=== PATIENT | male | born 1985 | race Caucasian/White ===

== ENCOUNTER 2017-03-09 23:52 | Inpatient (IN) ==
[2017-03-10 00:43] LABS: Basophils # 0.1 K/mcL (0.0-0.2); Basophils % 0.8 %; Eosinophils # 0.2 K/mcL (0.0-0.6); Eosinophils % 1.8 %; Hematocrit 39.3 % (37.5-50.1); Hemoglobin 13.5 g/dL (12.9-16.9); Immature Granulocytes % 0.3 % (0-4); Lymphocytes % 31.3 %; Mean Corpuscular HGB Conc 34.4 g/dL (31.6-35.5); Mean Corpuscular Hemoglobin 28.4 pg (28.0-33.3); Mean Corpuscular Volume 82.7 fL (83.0-100.0); Mean Platelet Volume 10.4 fL (9.4-12.4); Monocytes # 0.5 K/mcL (0.0-1.3); Monocytes % 5.6 %; Neutrophils # 5.8 K/mcL (1.6-8.9); Platelet Count 226 K/mcL (140-400); Red Blood Count 4.75 M/mcL (4.19-5.50); Red Cell Distribution Width 12.8 % (11.5-14.5); Segmented Neutrophils % 60.2 %
[2017-03-10 00:57] LABS: BUN/Creatinine Ratio 11 (6-26); Blood Urea Nitrogen 10 mg/dL (8-26); Calcium 9.7 mg/dL (8.6-10.8); Carbon Dioxide 25 mEq/L (19-29); Chloride 105 mEq/L (98-109); Glucose 96 mg/dL (70-99); Osmolality,Calculated 289 (280-300); Potassium 3.4 mEq/L (3.5-4.5); Sodium 140 mEq/L (136-145); eGFR For African Americans > 60 (> 60); eGFR For Non-African Americans > 60 (> 60)
[2017-03-10 01:02] LABS: Bilirubin,Urine Small (Negative); Blood,Urine Negative (Negative); Clarity,Urine Clear (Clear); Color,Urine Yellow (Yellow); Glucose,Urine (UA) Normal (Normal); Ketones,Urine Trace mg/dL (Negative); Leukocyte Esterase,Urine Negative (Negative); Nitrite,Urine Negative (Negative); Protein,Urine Trace mg/dL (Neg-Trace); Specific Gravity,Urine > 1.030 (1.010-1.025); Urobilinogen,Urine Normal (Normal)
[2017-03-10 01:04] LABS: Bacteria,Urine None Seen per hpf (None-Few); Hyaline Casts,Urine None Seen per lpf (None-Few); RBC,Urine 0-3 per hpf (0-3); Squamous Epithelial Cell,Urine Few per lpf (None-Few); WBC,Urine 0-3 per hpf (0-3)
[2017-03-10 01:08] LABS: Amphetamine Screen,Urine Positive ng/mL (Cutoff=1000); Barbiturate Screen,Urine Negative ng/mL (Cutoff=200); Benzodiazepines Screen,Urine Negative ng/mL (Cutoff=200); Cannabinoid Screen,Urine Positive ng/mL (Cutoff = 50); Cocaine Screen,Urine Positive ng/mL (Cutoff= 300); Opiate Screen,Urine Negative ng/mL (Cutoff=300); Phencyclidine Screen,Urine Negative ng/mL (Cutoff=25)
[2017-03-10 01:17] LABS: Thyroid Stimulating Hormone 1.945 mcIU/mL (0.350-4.840)
[2017-03-10 01:38] LABS: Acetaminophen < 1.0 mcg/mL (10-30); Ethanol < 10 mg/dL (0-10); Salicylate < 5.0 mg/dL (15-30)
--- NOTE | 2017-03-10 01:50 | Emergency Department Note ---
Disposition Clinical Impression: Suicidal ideation Disposition: Still a Patient Condition: Fair Referrals: NONE,PCP [Primary Care Provider] - Forms: ED Satisfaction Letter Psych HPI - General Chief Complaint: ED Psychiatric Symptoms Stated Complaint: suicidal thoughts Time Seen by Provider: 03/10/17 00:12 Source: patient, EMS Mode of arrival: EMS Limitations: no limitations Nursing Notes Reviewed: Yes Vital Signs Reviewed: Yes - History of Present Illness Pt complaint: suicidal ideation, feels depressed Onset (ago): month(s) Duration: intermittent, getting worse History of similar episodes: Yes Improves with: none Worsens with: none Context: recent drug abuse, not taking psychiatric medications, significant life stressor Alleged intoxication: No Associated Psychiatric Symptoms: depression, suicidal ideation Associated symptoms: Reports: denies other symptoms Traumatic symptoms: denies traumatic injury Treatments prior to arrival: none Self harm or harm to others: admits thoughts of self harm, has plan - Related Data Previous Rx's Medication Instructions Recorded Naproxen [Naprosyn] 500 mg PO BID #14 tablet 08/01/16 Allergies Allergy/AdvReac Type Severity Reaction Status Date / Time No Known Allergies Allergy Verified 10/07/16 19:33 All systems ED: reviewed and negative except as stated. Review of Systems: As Per HPI Constitutional: Denies: fever, chills, weakness Eyes: Denies: vision change ENT ED: Denies: ear pain, throat pain, congestion, dysphagia Cardiovascular: Denies: chest pain, palpitations, dyspnea on exertion Respiratory: Denies: cough, dyspnea, wheezes Gastrointestinal: Denies: abdominal pain, nausea, vomiting, diarrhea Genitourinary: Denies: hematuria Musculoskeletal: Denies: back pain, neck pain, joint swelling, arthralgia Integumentary: Denies: rash Neurological: Denies: headache, weakness, numbness, paresthesias Psychiatric: Reports: as per HPI, anxiety, depression, suicidal thoughts. Denies: homicidal thoughts, auditory hallucinations, visual hallucinations Endocrine: Denies: fatigue Hematological/Lymphatic: Denies: easy bleeding, easy bruising, lymphadenopathy Past Medical History - Past Medical History Attestation: Yes The following information was validated with the patient. Source: patient Medical history: Reports: no medical history Psychiatric history: Reports: depression - Social History Smoking Status: Former smoker Smokeless Tobacco Status: Yes Alcohol use: Reports: none Drug use: Reports: cocaine, marijuana, methamphetamine Physical Exam - General Limitations: no limitations General appearance: alert, in no apparent distress, anxious - Head Head exam: atraumatic, normocephalic, normal inspection - Eye Eye exam: Present: normal appearance, PERRL. Absent: scleral icterus, conjunctival injection, periorbital swelling - ENT ENT exam: mucous membranes moist - Neck Neck exam: Present: normal inspection, full ROM, trachea midline. Absent: meningismus - Chest Chest inspection: Present: normal inspection - Respiratory Respiratory exam: Present: normal lung sounds bilaterally. Absent: respiratory distress - Cardiovascular Cardiovascular exam: Present: regular rate, normal rhythm, normal heart sounds - Extremities Exam Extremities exam: Present: normal inspection, full ROM, normal capillary refill. Absent: pedal edema - Back Exam Back exam: Present: normal inspection - Neurological Exam Neurological exam: Present: alert, oriented X3, CN II-XII intact, normal gait - Psychiatric Psychiatric exam: Present: normal affect, depressed - Skin Skin exam: Present: warm, dry, intact, normal color Course Course Narrative: Patient was brought in by squad for evaluation of suicidal ideation. He states he was standing on the [address] [facility] contemplating jumping. I realized that it was not Tylenol. He has had depression for many years but stopped taking medication at the age of 19. He has had recent increased stress. He denies homicidal ideation. He denies any pain at this time. Labs are unremarkable except for urine tox screen positive for cocaine, methamphetamine and marijuana. Patient has been seen by the 1A nurse, Vinay FERMIN. She consulted with the psychiatrist. They are trying to place the patient. Patient care is transferred to the oncoming provider at shift change. Vital Signs Temperature 97.8 F 03/09/17 23:55 Pulse Rate 78 03/09/17 23:55 Respiratory Rate 16 03/09/17 23:55 Blood Pressure 118/83 03/09/17 23:55 O2 Sat by Pulse Oximetry 97 03/09/17 23:55 Temperature 97.8 F 03/09/17 23:55 Pulse Rate 72 03/10/17 03:48 Respiratory Rate 16 03/10/17 03:48 Blood Pressure 116/78 03/10/17 03:48 O2 Sat by Pulse Oximetry 98 03/10/17 03:48 Oxygen Delivery Oxygen Delivery Room Air Psych - Lab Data Result diagrams: 03/10/17 00:34 03/10/17 00:34 Lab Results 03/10/17 03/10/17 03/10/17 Range/Units 00:34 00:34 00:43 WBC 9.7 (4.3-11.1) K/mcL RBC 4.75 (4.19-5.50) M/mcL Hgb 13.5 (12.9-16.9) g/dL Hct 39.3 (37.5-50.1) % MCV 82.7 L (83.0-100.0) fL MCH 28.4 (28.0-33.3) pg MCHC 34.4 (31.6-35.5) g/dL RDW 12.8 (11.5-14.5) % Plt Count 226 (140-400) K/mcL MPV 10.4 (9.4-12.4) fL Immature Gran % 0.3 (0-4) % Seg Neutrophils % 60.2 % Lymphocytes % 31.3 % Monocytes % 5.6 % Eosinophils % 1.8 % Basophils % 0.8 % Neutrophils # 5.8 (1.6-8.9) K/mcL Lymphocytes # 3.0 (0.6-4.6) K/mcL Monocytes # 0.5 (0.0-1.3) K/mcL Eosinophils # 0.2 (0.0-0.6) K/mcL Basophils # 0.1 (0.0-0.2) K/mcL Sodium 140 (136-145) mEq/L Potassium 3.4 L (3.5-4.5) mEq/L Chloride 105 (98-109) mEq/L Carbon Dioxide 25 (19-29) mEq/L BUN 10 (8-26) mg/dL Creatinine 0.93 (0.72-1.25) mg/dL Est GFR ( Amer) > 60 (> 60) Est GFR (Non-Af Amer) > 60 (> 60) BUN/Creatinine Ratio 11 (6-26) Glucose 96 (70-99) mg/dL Calculated Osmolality 289 (280-300) Calcium 9.7 (8.6-10.8) mg/dL TSH 1.945 (0.350-4.840) mcIU/mL Urine Color Yellow (Yellow) Urine Clarity Clear (Clear) Urine pH 6.0 (5.0-8.0) pH Units Ur Specific [place] > 1.030 H (1.010-1.025) Urine Protein Trace (Neg-Trace) mg/dL Urine Glucose (UA) Normal (Normal) mg/dL Urine Ketones Trace H (Negative) mg/dL Urine Blood Negative (Negative) Urine Nitrite Negative (Negative) Urine Bilirubin Small H (Negative) Urine Urobilinogen Normal (Normal) mg/dL Ur Leukocyte Esterase Negative (Negative) Urine Microscopic RBC 0-3 (0-3) per hpf Urine Microscopic WBC 0-3 (0-3) per hpf Ur Squamous Epith Cells Few (None-Few) per lpf Urine Bacteria None Seen (None-Few) per hpf Hyaline Casts None Seen (None-Few) per lpf Salicylates < 5.0 L (15-30) mg/dL Urine Opiates Screen (Japmqe=567) ng/mL Acetaminophen < 1.0 L (10-30) mcg/mL Ur Barbiturates Screen (Uzmcmx=847) ng/mL Ur Phencyclidine Scrn (Cutoff=25) ng/mL Ur Amphetamines Screen (Meuyps=6961) ng/mL U Benzodiazepines Scrn (Djyhtk=800) ng/mL Urine Cocaine Screen (Cutoff= 300) ng/mL U Marijuana (THC) Screen (Cutoff = 50) ng/mL Ethyl Alcohol < 10 (0-10) mg/dL 03/10/17 Range/Units 00:49 WBC (4.3-11.1) K/mcL RBC (4.19-5.50) M/mcL Hgb (12.9-16.9) g/dL Hct (37.5-50.1) % MCV (83.0-100.0) fL MCH (28.0-33.3) pg MCHC (31.6-35.5) g/dL RDW (11.5-14.5) % Plt Count (140-400) K/mcL MPV (9.4-12.4) fL Immature Gran % (0-4) % Seg Neutrophils % % Lymphocytes % % Monocytes % % Eosinophils % % Basophils % % Neutrophils # (1.6-8.9) K/mcL Lymphocytes # (0.6-4.6) K/mcL Monocytes # (0.0-1.3) K/mcL Eosinophils # (0.0-0.6) K/mcL Basophils # (0.0-0.2) K/mcL Sodium (136-145) mEq/L Potassium (3.5-4.5) mEq/L Chloride (98-109) mEq/L Carbon Dioxide (19-29) mEq/L BUN (8-26) mg/dL Creatinine (0.72-1.25) mg/dL Est GFR ( Amer) (> 60) Est GFR (Non-Af Amer) (> 60) BUN/Creatinine Ratio (6-26) Glucose (70-99) mg/dL Calculated Osmolality (280-300) Calcium (8.6-10.8) mg/dL TSH (0.350-4.840) mcIU/mL Urine Color (Yellow) Urine Clarity (Clear) Urine pH (5.0-8.0) pH Units Ur Specific [place] (1.010-1.025) Urine Protein (Neg-Trace) mg/dL Urine Glucose (UA) (Normal) mg/dL Urine Ketones (Negative) mg/dL Urine Blood (Negative) Urine Nitrite (Negative) Urine Bilirubin (Negative) Urine Urobilinogen (Normal) mg/dL Ur Leukocyte Esterase (Negative) Urine Microscopic RBC (0-3) per hpf Urine Microscopic WBC (0-3) per hpf Ur Squamous Epith Cells (None-Few) per lpf Urine Bacteria (None-Few) per hpf Hyaline Casts (None-Few) per lpf Salicylates (15-30) mg/dL Urine Opiates Screen Negative ([place]=376) ng/mL Acetaminophen (10-30) mcg/mL Ur Barbiturates Screen Negative (Eoznpo=556) ng/mL Ur Phencyclidine Scrn Negative (Cutoff=25) ng/mL Ur Amphetamines Screen Positive H (Bngddj=8132) ng/mL U Benzodiazepines Scrn Negative (Lammqr=473) ng/mL Urine Cocaine Screen Positive H (Cutoff= 300) ng/mL U Marijuana (THC) Screen Positive H (Cutoff = 50) ng/mL Ethyl Alcohol (0-10) mg/dL Psychiatric Medical Clearance - Medical Clearance Checklist Medical History: No Social History Section defined Current Vitals: Last Vital Signs Temp 97.8 F 03/09/17 23:55 Pulse 72 03/10/17 03:48 Resp 16 03/10/17 03:48 BP 116/78 03/10/17 03:48 Pulse Ox 98 03/10/17 03:48 Psychiatric Lab Panel: Drug Levels and Toxicity 03/10/17 03/10/17 00:34 00:49 Urine Opiates Screen Negative Acetaminophen < 1.0 L Ur Barbiturates Screen Negative Ur Phencyclidine Scrn Negative Ur Amphetamines Screen Positive H U Benzodiazepines Scrn Negative Urine Cocaine Screen Positive H U Marijuana (THC) Screen Positive H Ethyl Alcohol < 10 Abnormal Labs: Abnormal lab results MCV 82.7 fL (83.0-100.0) L 03/10/17 00:34 Potassium 3.4 mEq/L (3.5-4.5) L 03/10/17 00:34 Ur Specific [place] > 1.030 (1.010-1.025) H 03/10/17 00:43 Urine Ketones Trace mg/dL (Negative) H 03/10/17 00:43 Urine Bilirubin Small (Negative) H 03/10/17 00:43 Salicylates < 5.0 mg/dL (15-30) L 03/10/17 00:34 Acetaminophen < 1.0 mcg/mL (10-30) L 03/10/17 00:34 Ur Amphetamines Screen Positive ng/mL (Swcwem=2274) H 03/10/17 00:49 Urine Cocaine Screen Positive ng/mL (Cutoff= 300) H 03/10/17 00:49 U Marijuana (THC) Screen Positive ng/mL (Cutoff = 50) H 03/10/17 00:49 Statement of Medical Clearance: I have evaluated the patient, reviewed diagnostic information, and certify that the patient's medical condition is sufficiently stable that transfer to the psychiatric unit does not pose a significant risk of deterioration. S.B.A.R. - S.B.A.Sunny. Situation: Demographics, MOA Background: Presenting Complaint, Relevant PMH, Meds, & Allergies Assessment: Vital Signs, Course and respsone to treatment, Patient/Family Expectation Recommendation: Barrier(s) to disposition, Recommendation based on pending studies, treatments, or consults S.B.A.R. Report Given to: Cuauhtemoc Vargas CNP SBecka Repor Time: 06:22
--- NOTE | 2017-03-10 06:44 | Emergency Department Note ---
Disposition Clinical Impression: Suicidal ideation Disposition: Admitted As Inpatient Condition: Fair Referrals: NONE,PCP [Primary Care Provider] - Forms: ED Satisfaction Letter Time of Disposition: 10:01 Psych HPI - General Chief Complaint: ED Psychiatric Symptoms Stated Complaint: suicidal thoughts Time Seen by Provider: 03/10/17 00:12 Source: patient, EMS Mode of arrival: EMS - History of Present Illness Duration: intermittent, getting worse Improves with: none Worsens with: none Associated symptoms: Reports: denies other symptoms Treatments prior to arrival: none - Related Data Previous Rx's Medication Instructions Recorded Naproxen [Naprosyn] 500 mg PO BID #14 tablet 08/01/16 Allergies Allergy/AdvReac Type Severity Reaction Status Date / Time No Known Allergies Allergy Verified 10/07/16 19:33 Constitutional: Denies: fever, chills, weakness Eyes: Denies: vision change ENT ED: Denies: ear pain, throat pain, congestion, dysphagia Cardiovascular: Denies: chest pain, palpitations, dyspnea on exertion Respiratory: Denies: cough, dyspnea, wheezes Gastrointestinal: Denies: abdominal pain, nausea, vomiting, diarrhea Genitourinary: Denies: hematuria Musculoskeletal: Denies: back pain, neck pain, joint swelling, arthralgia Integumentary: Denies: rash Neurological: Denies: headache, weakness, numbness, paresthesias Psychiatric: Reports: as per HPI, anxiety, depression, suicidal thoughts. Denies: homicidal thoughts, auditory hallucinations, visual hallucinations Endocrine: Denies: fatigue Hematological/Lymphatic: Denies: easy bleeding, easy bruising, lymphadenopathy Past Medical History - Past Medical History Medical history: Reports: no medical history Psychiatric history: Reports: depression - Social History Smoking Status: Former smoker Smokeless Tobacco Status: Yes Alcohol use: Reports: none Drug use: Reports: cocaine, marijuana, methamphetamine Physical Exam - General Limitations: no limitations General appearance: alert, in no apparent distress, anxious Course Course Narrative: 0600: I have assumed care of this patient from Lakia Lundberg PA-C due to mid- level shift change. Please refer to Lakia's documentation for any care performed prior to my arrival. Briefly, the patient is alert and oriented 31- year-old male who presented by EMS for thoughts of suicidal ideation. The patient states that he was standing on the [address] [facility] and contemplating jumping however decided it was not time. He states that he has battled depression for many years. He had been medicated up until the age of 19, however has been noncompliant with medications since. The patient is resting comfortably in bed at this time. He has been evaluated by 1A. at this time, we are awaiting placement at either an outside facility or for a bed to open up in 1A. 1000: I have been notified by the patient's nurse that the patient will be admitted to our inpatient psychiatric unit, 1A. Vital Signs Temperature 97.8 F 03/09/17 23:55 Pulse Rate 78 03/09/17 23:55 Respiratory Rate 16 03/09/17 23:55 Blood Pressure 118/83 03/09/17 23:55 O2 Sat by Pulse Oximetry 97 03/09/17 23:55 Temperature 97.8 F 03/09/17 23:55 Pulse Rate 64 03/10/17 08:27 Respiratory Rate 14 03/10/17 08:27 Blood Pressure 113/68 03/10/17 08:27 O2 Sat by Pulse Oximetry 98 03/10/17 08:27 Oxygen Delivery Oxygen Delivery Room Air Psych - Lab Data Lab results reviewed: Yes I reviewed the patient's lab results. Result diagrams: 03/10/17 00:34 03/10/17 00:34 Lab Results 03/10/17 03/10/17 03/10/17 Range/Units 00:34 00:34 00:43 WBC 9.7 (4.3-11.1) K/mcL RBC 4.75 (4.19-5.50) M/mcL Hgb 13.5 (12.9-16.9) g/dL Hct 39.3 (37.5-50.1) % MCV 82.7 L (83.0-100.0) fL MCH 28.4 (28.0-33.3) pg MCHC 34.4 (31.6-35.5) g/dL RDW 12.8 (11.5-14.5) % Plt Count 226 (140-400) K/mcL MPV 10.4 (9.4-12.4) fL Immature Gran % 0.3 (0-4) % Seg Neutrophils % 60.2 % Lymphocytes % 31.3 % Monocytes % 5.6 % Eosinophils % 1.8 % Basophils % 0.8 % Neutrophils # 5.8 (1.6-8.9) K/mcL Lymphocytes # 3.0 (0.6-4.6) K/mcL Monocytes # 0.5 (0.0-1.3) K/mcL Eosinophils # 0.2 (0.0-0.6) K/mcL Basophils # 0.1 (0.0-0.2) K/mcL Sodium 140 (136-145) mEq/L Potassium 3.4 L (3.5-4.5) mEq/L Chloride 105 (98-109) mEq/L Carbon Dioxide 25 (19-29) mEq/L BUN 10 (8-26) mg/dL Creatinine 0.93 (0.72-1.25) mg/dL Est GFR ( Amer) > 60 (> 60) Est GFR (Non-Af Amer) > 60 (> 60) BUN/Creatinine Ratio 11 (6-26) Glucose 96 (70-99) mg/dL Calculated Osmolality 289 (280-300) Calcium 9.7 (8.6-10.8) mg/dL TSH 1.945 (0.350-4.840) mcIU/mL Urine Color Yellow (Yellow) Urine Clarity Clear (Clear) Urine pH 6.0 (5.0-8.0) pH Units Ur Specific [place] > 1.030 H (1.010-1.025) Urine Protein Trace (Neg-Trace) mg/dL Urine Glucose (UA) Normal (Normal) mg/dL Urine Ketones Trace H (Negative) mg/dL Urine Blood Negative (Negative) Urine Nitrite Negative (Negative) Urine Bilirubin Small H (Negative) Urine Urobilinogen Normal (Normal) mg/dL Ur Leukocyte Esterase Negative (Negative) Urine Microscopic RBC 0-3 (0-3) per hpf Urine Microscopic WBC 0-3 (0-3) per hpf Ur Squamous Epith Cells Few (None-Few) per lpf Urine Bacteria None Seen (None-Few) per hpf Hyaline Casts None Seen (None-Few) per lpf Salicylates < 5.0 L (15-30) mg/dL Urine Opiates Screen (Ejjrav=703) ng/mL Acetaminophen < 1.0 L (10-30) mcg/mL Ur Barbiturates Screen (Gkzaqi=931) ng/mL Ur Phencyclidine Scrn (Cutoff=25) ng/mL Ur Amphetamines Screen (Axpyiv=4470) ng/mL U Benzodiazepines Scrn (Cnjmtd=457) ng/mL Urine Cocaine Screen (Cutoff= 300) ng/mL U Marijuana (THC) Screen (Cutoff = 50) ng/mL Ethyl Alcohol < 10 (0-10) mg/dL 03/10/17 Range/Units 00:49 WBC (4.3-11.1) K/mcL RBC (4.19-5.50) M/mcL Hgb (12.9-16.9) g/dL Hct (37.5-50.1) % MCV (83.0-100.0) fL MCH (28.0-33.3) pg MCHC (31.6-35.5) g/dL RDW (11.5-14.5) % Plt Count (140-400) K/mcL MPV (9.4-12.4) fL Immature Gran % (0-4) % Seg Neutrophils % % Lymphocytes % % Monocytes % % Eosinophils % % Basophils % % Neutrophils # (1.6-8.9) K/mcL Lymphocytes # (0.6-4.6) K/mcL Monocytes # (0.0-1.3) K/mcL Eosinophils # (0.0-0.6) K/mcL Basophils # (0.0-0.2) K/mcL Sodium (136-145) mEq/L Potassium (3.5-4.5) mEq/L Chloride (98-109) mEq/L Carbon Dioxide (19-29) mEq/L BUN (8-26) mg/dL Creatinine (0.72-1.25) mg/dL Est GFR ( Amer) (> 60) Est GFR (Non-Af Amer) (> 60) BUN/Creatinine Ratio (6-26) Glucose (70-99) mg/dL Calculated Osmolality (280-300) Calcium (8.6-10.8) mg/dL TSH (0.350-4.840) mcIU/mL Urine Color (Yellow) Urine Clarity (Clear) Urine pH (5.0-8.0) pH Units Ur Specific [place] (1.010-1.025) Urine Protein (Neg-Trace) mg/dL Urine Glucose (UA) (Normal) mg/dL Urine Ketones (Negative) mg/dL Urine Blood (Negative) Urine Nitrite (Negative) Urine Bilirubin (Negative) Urine Urobilinogen (Normal) mg/dL Ur Leukocyte Esterase (Negative) Urine Microscopic RBC (0-3) per hpf Urine Microscopic WBC (0-3) per hpf Ur Squamous Epith Cells (None-Few) per lpf Urine Bacteria (None-Few) per hpf Hyaline Casts (None-Few) per lpf Salicylates (15-30) mg/dL Urine Opiates Screen Negative (Rgcaad=730) ng/mL Acetaminophen (10-30) mcg/mL Ur Barbiturates Screen Negative (Frgdsu=148) ng/mL Ur Phencyclidine Scrn Negative (Cutoff=25) ng/mL Ur Amphetamines Screen Positive H (Sqxbrw=1162) ng/mL U Benzodiazepines Scrn Negative (Spigbb=976) ng/mL Urine Cocaine Screen Positive H (Cutoff= 300) ng/mL U Marijuana (THC) Screen Positive H (Cutoff = 50) ng/mL Ethyl Alcohol (0-10) mg/dL Psychiatric Medical Clearance - Medical Clearance Checklist Medical History: No Social History Section defined Current Vitals: Last Vital Signs Temp 97.8 F 03/09/17 23:55 Pulse 64 03/10/17 08:27 Resp 14 03/10/17 08:27 BP 113/68 03/10/17 08:27 Pulse Ox 98 03/10/17 08:27 Psychiatric Lab Panel: Drug Levels and Toxicity 03/10/17 03/10/17 00:34 00:49 Urine Opiates Screen Negative Acetaminophen < 1.0 L Ur Barbiturates Screen Negative Ur Phencyclidine Scrn Negative Ur Amphetamines Screen Positive H U Benzodiazepines Scrn Negative Urine Cocaine Screen Positive H U Marijuana (THC) Screen Positive H Ethyl Alcohol < 10 Abnormal Labs: Abnormal lab results MCV 82.7 fL (83.0-100.0) L 03/10/17 00:34 Potassium 3.4 mEq/L (3.5-4.5) L 03/10/17 00:34 Ur Specific [place] > 1.030 (1.010-1.025) H 03/10/17 00:43 Urine Ketones Trace mg/dL (Negative) H 03/10/17 00:43 Urine Bilirubin Small (Negative) H 03/10/17 00:43 Salicylates < 5.0 mg/dL (15-30) L 03/10/17 00:34 Acetaminophen < 1.0 mcg/mL (10-30) L 03/10/17 00:34 Ur Amphetamines Screen Positive ng/mL (Tbsvsd=9564) H 03/10/17 00:49 Urine Cocaine Screen Positive ng/mL (Cutoff= 300) H 03/10/17 00:49 U Marijuana (THC) Screen Positive ng/mL (Cutoff = 50) H 03/10/17 00:49 Statement of Medical Clearance: I have evaluated the patient, reviewed diagnostic information, and certify that the patient's medical condition is sufficiently stable that transfer to the psychiatric unit does not pose a significant risk of deterioration.
--- NOTE | 2017-03-10 13:07 | Psychiatry History & Physical ---
Date of Encounter: 03/10/17 Time of Encounter: 13:15 History of Present Illness Patient Stated Chief Complaint: "I wanted to go an kill myself." Medicare Admission Attestation: For traditional Medicare patients the provided hospital inpatient services are reasonable and necessary and in the case of services not specified as inpatient -only under 42 CFR 419.22 (n), that they are appropriately provided as inpatient services in accordance 42 CFR 412.3. For Critical Access Hospital the patient may reasonably be expected to be discharged or transferred to a hospital within 96 hours after admission to the Critical Access Hospital. Admitted From: Emergency Dept Plans for Post Hospital Care: Home History of Present Illness: Mr. Tavares is a 31 year old male with a reported history of depression, anxiety , opiate dependence, cocaine abuse who presented to the hospital with increasing depression and suicidal ideations. Patient states that he has a history of depression and has tried multiple times to kill himself. He usually does not think about a plan but just impulsively does something. Yesterday he wanted to jump off a bridge but was brought to the hospital instead. His last suicide attempt was over a year ago and was also an attempt to jump off a bridge. He states he has struggled long time with abusing pain pills and cocaine. He was on Suboxone until recently but he was kicked out of the program because of drug use. Patient reports that he sees demons and often prefers them to God because "God gives you free well but he cannot help you." "At least the demons will offer you stuff even if you have to train for something." He has been on multiple medications in the past and mentions Zoloft as well as Seroquel. He cannot remember all the medications he has tried. He is not sure what medications may help him but he does want to try medications for his mood. He does have sleep issues as well both falling asleep and staying asleep. His last use of illicit drugs was on Thursday. Past Med Surg Social Fam HX - Past Medical History Medical history: no medical history - Past Psychiatric History Psychiatric history: Reports: prior suicide attempt, previous psychiatric hospitalization Past psychiatric history details: Patient reports three or four previous suicide attempts. Last time was over a year ago and he attempted to jump off a bridge. He has been admitted to [facility] before. History opiate and cocaine abuse. Family psychiatric history: No Family History of Suicide: None - Social History Smoking Status: Current every day smoker Smokeless Tobacco Status: Yes Alcohol use: none Drug use: cocaine, marijuana, methamphetamine Occupational status: employed ([employer]) Current living situation: Homeless - Family History Mother Name: Natasha Oliveira Age: 48 Family Member Ethnicity: Non- Living Status: Still Living Hx Family Cardiac Disorders: Yes (Great uncle has signifant history of [place], HTN) Hx Family Respiratory Disorders: Yes (Grandfather is O2 dependent) Hx Family Cancer: No Hx Family GI Disorders: No Hx Family Genitourinary Disorders: Yes (Grandmother incontinent/urinary frequency.) Hx Family Endocrine Disorder: Yes (Significant history of multiple family members having diabetes.) Hx Family Musculoskeletal Disorders: No Hx Family Neuromuscular Disorders: No Hx Family Neurologic Disorders: No Hx Family HEENT Disorders: No Hx Family Autoimmune Disorders: No Hx Family Reproductive Disorders: No Hx Family Psychosocial Disorders: No Hx Family Medical Disorders: No Medications & Allergies No Known Home Drugs 03/10/17 [History] 3 Allergy/AdvReac Type Severity Reaction Status Date / Time No Known Allergies Allergy Verified 10/07/16 19:33 Review of Systems Musculoskeletal: Reports: joint pain (chronic) Psychiatric: Reports: depression, anxiety, abnormal sleep pattern, suicidal ideation, auditory hallucinations, visual hallucinations, memory loss, difficulty concentrating, hopelessness, irritability Mental Status Exam Patient orientation: Yes Person, Yes Time, Yes Place Level of alertness: Alert Patient appearance: Unkempt Behavior: restless, guarded Psychomotor activity: Slowed Eye contact: Minimal Contact Mood description: Depressed Affect description: flat Speech pattern: Slowed Speech volume: Normal Thought process: Intact, [place], Slowed Thinking Thought content: Yes Suicidal ideation Perceptual disturbances: No Auditory hallucinations, No Visual hallucinations Attention span: Capable of Focused Attention Memory description: Grossly Intact Patient reliability: Questionable Historian Intelligence estimate: Below Average Judgment: Poor Insight: None Exam - HEENT Head exam IM: Present: atraumatic Eye exam IM: Present: EOMI - Neurological Neurological exam IM: Present: CN II-XII intact - Extremities Extremities exam IM: Present: full ROM - Skin Skin exam IM: Present: dry, warm Results - Vital Signs Vital signs: Temp Pulse Resp BP Pulse Ox 97.8 F 82 16 113/68 98 03/09/17 23:55 03/10/17 10:00 03/10/17 10:00 03/10/17 10:00 03/10/17 10:00 - Labs Labs: Laboratory Last Values WBC 9.7 K/mcL (4.3-11.1) 03/10/17 00:34 RBC 4.75 M/mcL (4.19-5.50) 03/10/17 00:34 Hgb 13.5 g/dL (12.9-16.9) 03/10/17 00:34 Hct 39.3 % (37.5-50.1) 03/10/17 00:34 MCV 82.7 fL (83.0-100.0) L 03/10/17 00:34 MCH 28.4 pg (28.0-33.3) 03/10/17 00:34 MCHC 34.4 g/dL (31.6-35.5) 03/10/17 00:34 RDW 12.8 % (11.5-14.5) 03/10/17 00:34 Plt Count 226 K/mcL (140-400) 03/10/17 00:34 MPV 10.4 fL (9.4-12.4) 03/10/17 00:34 Immature Gran % 0.3 % (0-4) 03/10/17 00:34 Seg Neutrophils % 60.2 % 03/10/17 00:34 Lymphocytes % 31.3 % 03/10/17 00:34 Monocytes % 5.6 % 03/10/17 00:34 Eosinophils % 1.8 % 03/10/17 00:34 Basophils % 0.8 % 03/10/17 00:34 Neutrophils # 5.8 K/mcL (1.6-8.9) 03/10/17 00:34 Lymphocytes # 3.0 K/mcL (0.6-4.6) 03/10/17 00:34 Monocytes # 0.5 K/mcL (0.0-1.3) 03/10/17 00:34 Eosinophils # 0.2 K/mcL (0.0-0.6) 03/10/17 00:34 Basophils # 0.1 K/mcL (0.0-0.2) 03/10/17 00:34 Sodium 140 mEq/L (136-145) 03/10/17 00:34 Potassium 3.4 mEq/L (3.5-4.5) L 03/10/17 00:34 Chloride 105 mEq/L (98-109) 03/10/17 00:34 Carbon Dioxide 25 mEq/L (19-29) 03/10/17 00:34 BUN 10 mg/dL (8-26) 03/10/17 00:34 Creatinine 0.93 mg/dL (0.72-1.25) 03/10/17 00:34 Est GFR ( Amer) > 60 (> 60) 03/10/17 00:34 Est GFR (Non-Af Amer) > 60 (> 60) 03/10/17 00:34 BUN/Creatinine Ratio 11 (6-26) 03/10/17:34 Glucose 96 mg/dL (70-99) 03/10/17:34 Calculated Osmolality 289 (280-300) 03/10/17:34 Calcium 9.7 mg/dL (8.6-10.8) 03/10/17 00:34 TSH 1.945 mcIU/mL (0.350-4.840) 03/10/17 00:34 Urine Color Yellow (Yellow) 03/10/17 00:43 Urine Clarity Clear (Clear) 03/10/17 00:43 Urine pH 6.0 pH Units (5.0-8.0) 03/10/17 00:43 Ur Specific [place] > 1.030 (1.010-1.025) H 03/10/17 00:43 Urine Protein Trace mg/dL (Neg-Trace) 03/10/17 00:43 Urine Glucose (UA) Normal mg/dL (Normal) 03/10/17 00:43 Urine Ketones Trace mg/dL (Negative) H 03/10/17 00:43 Urine Blood Negative (Negative) 03/10/17 00:43 Urine Nitrite Negative (Negative) 03/10/17 00:43 Urine Bilirubin Small (Negative) H 03/10/17 00:43 Urine Urobilinogen Normal mg/dL (Normal) 03/10/17 00:43 Ur Leukocyte Esterase Negative (Negative) 03/10/17 00:43 Urine Microscopic RBC 0-3 per hpf (0-3) 03/10/17 00:43 Urine Microscopic WBC 0-3 per hpf (0-3) 03/10/17 00:43 Ur Squamous Epith Cells Few per lpf (None-Few) 03/10/17 00:43 Urine Bacteria None Seen per hpf (None-Few) 03/10/17 00:43 Hyaline Casts None Seen per lpf (None-Few) 03/10/17 00:43 Salicylates < 5.0 mg/dL (15-30) L 03/10/17 00:34 Urine Opiates Screen Negative ng/mL (Ropjye=759) 03/10/17 00:49 Acetaminophen < 1.0 mcg/mL (10-30) L 03/10/17 00:34 Ur Barbiturates Screen Negative ng/mL (Tklbwp=777) 03/10/17 00:49 Ur Phencyclidine Scrn Negative ng/mL (Cutoff=25) 03/10/17 00:49 Ur Amphetamines Screen Positive ng/mL (Nrjbhn=2526) H 03/10/17 00:49 U Benzodiazepines Scrn Negative ng/mL (Ufthuj=748) 03/10/17 00:49 Urine Cocaine Screen Positive ng/mL (Cutoff= 300) H 03/10/17 00:49 U Marijuana (THC) Screen Positive ng/mL (Cutoff = 50) H 03/10/17 00:49 Ethyl Alcohol < 10 mg/dL (0-10) 03/10/17 00:34 Assessment and Plan (1) Depression Current visit: Yes Status: Acute Plan: Admit inpatient for safety and stabilization, Close observation, Suicide Precautions per unit protocol, Encourage participation in unit milieu, Group Therapy, Monitor sleep, Monitor appetite Additional Plan: We will start Lexapro. Consider adding Risperdal at bedtime. Trazodone for sleep. Monitor symptoms. Risks, benefits, side effects, alternatives discussed w/pt: Yes Patient agreeable to treatment: Yes Estimated Length of Stay (Days): 3 Qualifiers: Depression Type: major depressive disorder Major depression recurrence: recurrent Active/Remission status: currently active Major depression episode severity: severe Psychotic features: with psychotic features Qualified Code(s): F33.3 - Major depressive disorder, recurrent, severe with psychotic symptoms (2) Anxiety Current visit: Yes Status: Acute Plan: Admit inpatient for safety and stabilization, Close observation, Suicide Precautions per unit protocol, Encourage participation in unit milieu, Group Therapy, Monitor sleep, Monitor appetite Additional Plan: Hydroxyzine for anxiety. (3) Opiate dependence Current visit: Yes Status: Acute Plan: Admit inpatient for safety and stabilization, Close observation, Suicide Precautions per unit protocol, Encourage participation in unit milieu, Group Therapy, Monitor sleep, Monitor appetite Additional Plan: Monitor for withdrawal. Qualifiers: Substance use status: uncomplicated Qualified Code(s): F11.20 - Opioid dependence, uncomplicated (4) Cocaine abuse Current visit: Yes Status: Acute
[2017-03-10] MEDS ORDERED: hydrOXYzine pamoate 25 MG CAPSULE PO PRN (13:56)
[2017-03-10] MEDS ORDERED: Mag Hydrox/Al Hydrox/Simeth 30 ML UDC PO PRN (13:56)
[2017-03-10] MEDS ORDERED: *HR* LORazepam 1 MG TABLET PO PRN (13:56)
[2017-03-10] MEDS ORDERED: traZODone 50 MG TABLET PO PRN (13:56)
[2017-03-10] MEDS ORDERED: *HR* LORazepam 2 MG/ML VIAL IM PRN (13:56)
[2017-03-10] MEDS ORDERED: Haloperidol Lactate 5 MG/ML VIAL IM PRN (13:56)
[2017-03-10] MEDS ORDERED: Acetaminophen 325 MG TABLET PO PRN (13:56)
[2017-03-10] MEDS ORDERED: MOM Conc 10 ML UD.LIQ PO PRN (13:56)
[2017-03-10] MEDS: Nicotine 21 MG PATCH.TD24 TD SCH (14:30)
[2017-03-11] MEDS: Nicotine 21 MG PATCH.TD24 TD SCH (09:00)
--- NOTE | 2017-03-11 11:04 | Psychiatry Progress Note ---
Date of Encounter: 03/11/17 Time of Encounter: 09:00 Subjective Interval history: Roman is seen today for follow-up. He reports that he did not sleep well. He feels he is having some Suboxone withdrawal. He has not tried Vistaril for restlessness or anxiety. He states he woke up several times throughout the night and felt very anxious and depressed. He reports continued thoughts about demons. He does not appear to have showered. Patient is willing to try other methods to help with mood and anxiety symptoms. Review of Systems Constitutional: Denies: fever, chills, weakness, weight change Eyes: Denies: eye pain, vision change Ears, Nose, Throat: Denies: ear pain, throat pain, dental pain, hearing loss, congestion Cardiovascular: Denies: chest pain, palpitations, dyspnea on exertion Respiratory: Denies: cough, dyspnea, wheezes Gastrointestinal: Denies: abdominal pain, nausea, vomiting, diarrhea, constipation Musculoskeletal: Denies: joint swelling, joint pain Neurological: Reports: headache Psychiatric: Reports: depression, anxiety, abnormal sleep pattern, suicidal ideation, auditory hallucinations, visual hallucinations, memory loss, difficulty concentrating, hopelessness, irritability Objective: Exam Patient orientation: Yes Person, Yes Place, Yes Circumstance Level of alertness: Alert Patient appearance: Disheveled, Malodorous Behavior: nervous, guarded, distractible Psychomotor activity: Slowed Eye contact: Intense Contact Mood description: Depressed, Anxious Affect description: flat Speech pattern: Slowed Speech volume: Soft/Quiet Thought process: [place], Slowed Thinking Thought content: Yes Suicidal ideation Perceptual disturbances: No Auditory hallucinations, No Visual hallucinations Judgment: Poor Insight: Minimal Results - Vital Signs Vital Signs: Temp Pulse Resp BP Pulse Ox 97.8 F 85 18 122/63 98 03/11/17 09:00 03/11/17 09:00 03/11/17 09:00 03/11/17 09:00 03/10/17 10:00 Assessment and Plan (1) Depression Current visit: Yes Status: Acute Plan: Continue hospitalization, Close observation, Suicide Precautions per unit protocol, Encourage participation in unit milieu, Group Therapy, Monitor sleep, Monitor appetite Additional Plan: Add Risperdal at bedtime. Continue Lexapro. Encourage appropriate ADLs and group attendance. Risks, benefits, side effects, alternatives discussed w/pt: Yes Patient agreeable to treatment: Yes Qualifiers: Depression Type: major depressive disorder Major depression recurrence: recurrent Active/Remission status: currently active Major depression episode severity: severe Psychotic features: with psychotic features Qualified Code(s): F33.3 - Major depressive disorder, recurrent, severe with psychotic symptoms (2) Anxiety Current visit: Yes Status: Acute Plan: Continue hospitalization, Close observation, Suicide Precautions per unit protocol, Encourage participation in unit milieu, Group Therapy, Monitor sleep, Monitor appetite Additional Plan: Hydroxyzine for anxiety. Risks, benefits, side effects, alternatives discussed w/pt: Yes Patient agreeable to treatment: Yes (3) Opiate dependence Current visit: Yes Status: Acute Additional Plan: We will use hydroxyzine for restlessness and consider adding clonidine depending on symptoms and blood pressure. Monitor vitals. Qualifiers: Substance use status: in withdrawal Qualified Code(s): F11.23 - Opioid dependence with withdrawal (4) Cocaine abuse Current visit: Yes Status: Acute Consult Discharge Plan - Plan Referrals: NONE,PCP [Primary Care Provider] -
[2017-03-11] MEDS: Nicotine 2 MG GUM BC PRN (20:38)
[2017-03-11] MEDS ORDERED: risperiDONE 1 MG TABLET PO SCH (21:00)
[2017-03-12] MEDS: Nicotine 2 MG GUM BC PRN (09:14)
[2017-03-12 09:40] VITALS: BP 126/84
--- NOTE | 2017-03-12 10:36 | Discharge Summary ---
Date of Encounter: 03/12/17 Time of Encounter: 10:00 Diagnosis - Discharge Diagnosis (1) Depression Priority: Primary Status: Acute Qualifiers: Depression Type: major depressive disorder Major depression recurrence: recurrent Active/Remission status: currently active Major depression episode severity: severe Psychotic features: with psychotic features Qualified Code(s): F33.3 - Major depressive disorder, recurrent, severe with psychotic symptoms (2) Anxiety Priority: Secondary Status: Acute (3) Opiate dependence Priority: Secondary Status: Acute Qualifiers: Substance use status: in withdrawal Qualified Code(s): F11.23 - Opioid dependence with withdrawal (4) Cocaine abuse Priority: Secondary Status: Acute Medications - Discharge Medications Prescriptions: Escitalopram [Lexapro] 10 mg PO DAILY #30 tab hydrOXYzine pamoate [HydrOXYzine Pamoate] 25 mg PO TID PRN #90 cap PRN Reason: Anxiety risperiDONE [RisperDAL] 1 mg PO HS #30 tab Escitalopram [Lexapro] 10 mg PO DAILY #30 tab 03/12/17 [Rx] hydrOXYzine pamoate [HydrOXYzine Pamoate] 25 mg PO TID PRN #90 cap 03/12/17 [Rx] risperiDONE [RisperDAL] 1 mg PO HS #30 tab 03/12/17 [Rx] 3 Allergy/AdvReac Type Severity Reaction Status Date / Time No Known Allergies Allergy Verified 10/07/16 19:33 Provider Date of admission: 03/10/17 10:13 Primary care physician: PCP NONE Discharging clinician: Ansley Carlson Assessment and Plan - Patient/Caregiver Discharge Instructions Activity: resume usual activities as tolerated Diet: regular diet - Follow up Plan Follow up with: Self, Refind [Other] - 03/27/17 2:30 pm (You are scheduled for a Suboxone assessment on 03/27/2017 at 2:30pm. Please arrive at 2:00pm for paperwork. Please bring your insurance card and photo ID to your appointment. This is the first available appointment. You may contact the office regularly to check for cancellations that may allow you to be seen sooner. IT IS EXTREMELY IMPORTANT THAT YOU ARRIVE ON TIME TO THIS APPOINTMENT IN ORDER TO BE SEEN) [facility] [Outside] - 03/19/17 10:30 am (The above appointment is with Gwen Roberts, counselor at [facility]. Your first appointment will be very thorough and the total appointment time will take between two and three hours. You will be completing paperwork, meeting with a counselor and a nurse, and developing a treatment plan. You will receive follow- up appointments for on-going services , which could include community support, mental health and substance abuse counseling, groups/partial hospitalization programming, medication assisted treatment, and psychiatric medication management. Please bring the following with you to your first visit to the clinic: 1) proof of household income (two consecutive pay stubs, social security award letter, bank statement, statement letter from [employer], child support statement, IRS 1040 or W2 form, or a statement from the person who financially supports you stating they help provide for your basic needs), 2) proof of residency (drivers license, a piece of mail showing your address, a statement from person you live with verifying you live at their address), 3) your social security card, 4) photo ID, and 5) your insurance card (if you have commercial insurance you must call to obtain a prior authorization number before you arrive to your first appointment). If you do not bring these items, you will not be seen.) Justina Cruz [Advanced Practice Nurse] - 03/30/17 3:00 pm (The above appointment is with Justina Cruz CNP, at [facility]. This appointment is to establish you with a primary care provider. Your needs for medication and/or Vivitrol will be assessed and treated as indicated as well. Please arrive 15 minutes early to complete paperwork. Please bring your insurance card, photo ID and list of current medications to your first appointment. This is the first available appointment. You may contact the office regularly to check for cancellations that may allow you to be seen sooner. ) Functional capacity at discharge: independent ambulation Overall status at discharge: Stable Disposition: Home, Self-Care Hospital Course Hospital course: Mr. Tavares is a 31 year old male with a history of depres who presented to the hospital with increasing depression and anxiety. He was admitted to for psychiatric stabilization. Patient was incorporated into the therapeutic milieu and offer group and individual as well as recreational therapy. He was also offered psychoeducational materials and supportive therapy. He was placed on suicide precautions and close observation per unit protocol. Patient was started on Lexapro and Risperdal for mood symptoms. Throughout the course of hospital stay the patient's mood did improve. He reported some anxiety that he feels may be related to Suboxone withdrawal. Vistaril was somewhat helpful for this. Patient states that he did not feel depressed but denied he came to the hospital by the main reason he told the picture framer that he wanted to kill himself was because they stopped him and he had just used much and gabapentin. He also admits that he was upset because his girlfriend breaking up with him. Now he feels better about the breakup and is more future oriented. He does feel the medications are helpful and would like to continue them. He denies suicidal or homicidal ideation, intent, or plan. He is interacting with peers and staff and attending some groups. He will be discharged in stable condition with outpatient follow-up in place. Patient's mother has been contacted and will be picking him up at the hospital. - Time Spent with Patient Total time spent providing and/or coordinating discharge services: Less than 30 minutes Quality - Multiple Antipsychotics Patient discharged on 2 or more antipsychotic medications: No Procedures - Procedures Procedures: Medication Management, Crisis Stabilization, Supportive Therapy, Group Therapy, Psychoeducational Therapy Mental Status Exam - Mental Status Exam Patient orientation: Yes Person, Yes Time, Yes Place Level of alertness: Alert Patient appearance: Appropriate Behavior: calm, cooperative Psychomotor activity: Normal Eye contact: Maintains Eye Contact Mood description: Euthymic/stable Affect description: constricted Speech pattern: Normal rate, Normal rhythm, Normal tone Speech Volume: Normal Thought process: Linear, Goal Oriented Thought Content: No Suicidal ideation, No Homicidal ideation, No Overt delusions Perceptual Disturbances: No Auditory hallucinations, No Visual hallucinations Judgment: Limited Insight: Partial
== END 2017-03-12 11:15 | disposition home or self-care (01) | DRG 751 ==
LOC: EMEROO 23:52 → 1ANU 03-10 10:13
PROVIDERS: ADMIT Student in an Organized Health Care Education/Training Program; ATTEND Student in an Organized Health Care Education/Training Program

== ENCOUNTER 2019-03-05 03:09 | Inpatient (IN) ==
[2019-03-05 03:41] LABS: Bilirubin,Urine Negative (Negative); Blood,Urine Negative (Negative); Clarity,Urine Clear (Clear); Color,Urine Yellow (Yellow); Glucose,Urine (UA) Normal (Normal); Ketones,Urine Negative (Negative); Leukocyte Esterase,Urine Negative (Negative); Nitrite,Urine Negative (Negative); Protein,Urine Trace mg/dL (Neg-Trace); Specific Gravity,Urine > 1.030 (1.010-1.025); Urobilinogen,Urine Normal (Normal)
[2019-03-05 03:54] LABS: Amphetamine Screen,Urine Positive ng/mL (Cutoff=1000); Barbiturate Screen,Urine Negative ng/mL (Cutoff=200); Benzodiazepines Screen,Urine Negative ng/mL (Cutoff=200); Cannabinoid Screen,Urine Negative ng/mL (Cutoff = 50); Cocaine Screen,Urine Negative ng/mL (Cutoff= 300); Opiate Screen,Urine Negative ng/mL (Cutoff=300); Phencyclidine Screen,Urine Negative ng/mL (Cutoff=25)
[2019-03-05 03:59] LABS: Basophils # 0.1 K/mcL (0.0-0.2); Basophils % 0.8 %; Eosinophils # 0.3 K/mcL (0.0-0.6); Eosinophils % 1.7 %; Hematocrit 42.5 % (37.5-50.1); Hemoglobin 14.5 g/dL (12.9-16.9); Immature Granulocytes % 0.4 % (0-4); Lymphocytes # 2.2 K/mcL (0.6-4.6); Lymphocytes % 15.1 %; Mean Corpuscular HGB Conc 34.1 g/dL (31.6-35.5); Mean Corpuscular Hemoglobin 29.2 pg (28.0-33.3); Mean Corpuscular Volume 85.7 fL (83.0-100.0); Mean Platelet Volume 10.3 fL (9.4-12.4); Monocytes # 1.2 K/mcL (0.0-1.3); Monocytes % 8.6 %; Neutrophils # 10.5 K/mcL (1.6-8.9); Platelet Count 253 K/mcL (140-400); Red Blood Count 4.96 M/mcL (4.19-5.50); Red Cell Distribution Width 12.5 % (11.5-14.5); Segmented Neutrophils % 73.4 %; White Blood Count 14.3 K/mcL (4.3-11.1)
[2019-03-05 04:20] LABS: Acetaminophen < 10 mcg/mL (10-20); BUN/Creatinine Ratio 14 (6-26); Blood Urea Nitrogen 13 mg/dL (6-20); Calcium 9.5 mg/dL (8.6-10.3); Carbon Dioxide 24 mEq/L (23-29); Chloride 107 mEq/L (98-107); Ethanol < 10 mg/dL (Less than 10); Potassium 3.4 mEq/L (3.5-5.1); Salicylate < 2.5 mg/dL (15.0-30.0); Sodium 139 mEq/L (136-145); eGFR For African Americans > 60 (> 60); eGFR For Non-African Americans > 60 (> 60)
[2019-03-05 04:26] LABS: Glucose 115 mg/dL (70-105); Osmolality,Calculated 289 (280-300)
--- NOTE | 2019-03-05 04:41 | Emergency Department Note ---
Disposition Clinical Impression: Methamphetamine abuse, Suicidal ideation Disposition: Admitted As Inpatient Condition: Fair Time of Disposition: 05:56 Psych HPI - General Chief Complaint: ED Psychiatric Symptoms Stated Complaint: SI Time Seen by Provider: 03/05/19 04:35 Source: patient, EMS Limitations: no limitations Nursing Notes Reviewed: Yes Vital Signs Reviewed: Yes - History of Present Illness HPI Narrative: 33-year-old gentleman with a history of methamphetamine use/abuse presents with suicidal ideations. He does not have a plan. However, he has attempted in the past with hanging. There has any recent colds, cough, nausea vomiting or abdominal pain. She denies any chest pain or palpitations. He states that he just feels sad and depressed and wants to escape. Pt complaint: suicidal ideation Onset (ago): day(s) (1) Duration: constant History of similar episodes: Yes Improves with: none Worsens with: drug use Context: recent drug abuse Alleged intoxication: No Associated Psychiatric Symptoms: suicidal ideation Associated symptoms: Reports: denies other symptoms Traumatic symptoms: denies traumatic injury - Related Data Home Medications Medication Instructions Recorded Confirmed No Known Home Drugs 03/05/19 03/05/19 Allergies Allergy/AdvReac Type Severity Reaction Status Date / Time No Known Allergies Allergy Verified 03/05/19 03:12 All systems ED: reviewed and negative except as stated. Constitutional: Denies: fever, chills, weakness, weight change Eyes: Denies: eye pain, eye discharge, vision change ENT ED: Denies: ear pain, throat pain, dental pain, hearing loss, epistaxis, congestion, dysphagia Cardiovascular: Denies: chest pain, palpitations, dyspnea on exertion, edema, syncope Respiratory: Denies: cough, dyspnea, wheezes, hemoptysis, stridor Gastrointestinal: Denies: abdominal pain, nausea, vomiting, diarrhea, constipation, hematemesis, melena, hematochezia Genitourinary: Denies: urgency, dysuria, frequency, hematuria Musculoskeletal: Denies: back pain, neck pain, arthralgia, myalgia Integumentary: Denies: rash, abrasion, lesions Neurological: Denies: headache, weakness, numbness, paresthesias, confusion, abnormal gait, vertigo Psychiatric: Reports: anxiety, depression, suicidal thoughts. Denies: homicidal thoughts, auditory hallucinations, visual hallucinations Endocrine: Denies: fatigue Hematological/Lymphatic: Denies: easy bleeding, easy bruising Allergic/Immunologic: Denies: facial swelling, urticaria Past Medical History - Past Medical History Attestation: Yes The following information was validated with the patient. Source: patient Medical history: Reports: hepatitis Surgical history: Reports: non-contributory, cholecystectomy Psychiatric history: Reports: anxiety, depression, prior suicide attempt, schizophrenia - Social History Smoking Status: Current every day smoker Smokeless Tobacco Status: No Alcohol use: Reports: none Drug use: Reports: cocaine, marijuana, methamphetamine Physical Exam - General Limitations: no limitations General appearance: alert - Head Head exam: atraumatic, normocephalic, normal inspection - Eye Eye exam: Present: normal appearance, PERRL, EOMI - Expanded Eye Exam Pupils: Left: reactive - ENT ENT exam: normal exam, normal oropharynx, mucous membranes moist - Expanded ENT Exam External ear exam: Present: normal external inspection Mouth exam: Present: normal external inspection Teeth exam: Present: normal inspection Throat exam: Present: normal inspection - Neck Neck exam: Present: normal inspection, full ROM, trachea midline - Chest Chest inspection: Present: normal inspection, symmetric chest wall rise - Respiratory Respiratory exam: Present: normal lung sounds bilaterally - Cardiovascular Cardiovascular exam: Present: regular rate, normal rhythm, normal heart sounds - Abdominal Exam Abdominal exam: Present: soft, Non-Tender. Absent: tenderness, distention, guarding, rebound, rigidity - Extremities Exam Extremities exam: Present: normal inspection, full ROM. Absent: tenderness, pedal edema - Expanded Upper Extremity Exam Shoulder exam: Present: normal inspection, full ROM Arm exam: Present: normal inspection, full ROM Elbow exam: Present: normal inspection, full ROM Forearm/Wrist exam: Present: normal inspection, full ROM Hand exam: Present: normal inspection, full ROM Vascular exam: Normal: capillary refill, radial pulse - Expanded Lower Extremity Exam Hip/Pelvis exam: Present: normal inspection, full ROM Upper leg exam: Present: normal inspection, full ROM Knee exam: Present: normal inspection, full ROM Lower leg exam: Present: normal inspection, full ROM Ankle exam: Present: normal inspection, full ROM Foot/toe exam: Present: normal inspection, full ROM Neurovascular/Tendon exam: Absent: motor deficit, sensory deficit, tendon deficit - Back Exam Back exam: Present: normal inspection, full ROM. Absent: tenderness - Neurological Exam Neurological exam: Present: alert, oriented X3 - Expanded Neurological Exam Patient oriented to: Present: person, place, time Coma Scale Eye Opening: Spontaneous Coma Scale Motor Response: Obeys Commands Coma Scale Verbal Response: Oriented Coma Scale Total: 15 - Psychiatric Psychiatric exam: Present: normal affect, normal mood - Skin Skin exam: Present: warm, dry, intact, normal color Course Course Narrative: Patient was placed in examination room. H&P obtained. Nurse notes reviewed. Initial vital signs were reviewed. He was mildly tachycardic. However he states he was anxious. This was rechecked and he was a non-beats per minute. Patient was initially upset upon arrival and crying as this was vital signs were obtained. He still is very teary-eyed. He does not have a plan because he decided to stop and think about at this time and get help prior to attempting suicide. He did try to commit suicide in the past by hanging. - Reevaluation(s) Reevaluation #1: Patient is medically cleared. Time: 04:41 Vital Signs Temperature 98.3 F 03/05/19 03:13 Pulse Rate 118 03/05/19 03:13 Respiratory Rate 16 03/05/19 03:13 Blood Pressure 127/93 03/05/19 03:13 O2 Sat by Pulse Oximetry 97 03/05/19 03:13 Temperature 98.3 F 03/05/19 03:13 Pulse Rate 118 03/05/19 03:13 Respiratory Rate 16 03/05/19 03:13 Blood Pressure 127/93 03/05/19 03:13 O2 Sat by Pulse Oximetry 97 03/05/19 03:13 Oxygen Delivery Oxygen Delivery Room Air Psych - MDM Narrative Medical decision making narrative: Behavioral medicine 1a Will be contacted to further evaluate him. Patient will be admitted to 1a @ [facility]. The request was placed - Lab Data Result diagrams: 03/05/19 03:39 03/05/19 03:39 Lab Results 03/05/19 03/05/19 03/05/19 Range/Units 03:24 03:24 03:39 WBC 14.3 H (4.3-11.1) K/mcL RBC 4.96 (4.19-5.50) M/mcL Hgb 14.5 (12.9-16.9) g/dL Hct 42.5 (37.5-50.1) % MCV 85.7 (83.0-100.0) fL MCH 29.2 (28.0-33.3) pg MCHC 34.1 (31.6-35.5) g/dL RDW 12.5 (11.5-14.5) % Plt Count 253 (140-400) K/mcL MPV 10.3 (9.4-12.4) fL Immature Gran % 0.4 (0-4) % Seg Neutrophils % 73.4 % Lymphocytes % 15.1 % Monocytes % 8.6 % Eosinophils % 1.7 % Basophils % 0.8 % Neutrophils # 10.5 H (1.6-8.9) K/mcL Lymphocytes # 2.2 (0.6-4.6) K/mcL Monocytes # 1.2 (0.0-1.3) K/mcL Eosinophils # 0.3 (0.0-0.6) K/mcL Basophils # 0.1 (0.0-0.2) K/mcL Sodium (136-145) mEq/L Potassium (3.5-5.1) mEq/L Chloride (98-107) mEq/L Carbon Dioxide (23-29) mEq/L BUN (6-20) mg/dL Creatinine (0.70-1.30) mg/dL Est GFR ( Amer) (> 60) Est GFR (Non-Af Amer) (> 60) BUN/Creatinine Ratio (6-26) Glucose (70-105) mg/dL Calculated Osmolality (280-300) Calcium (8.6-10.3) mg/dL Urine Color Yellow (Yellow) Urine Clarity Clear (Clear) Urine pH 5.0 (5.0-8.0) pH Units Ur Specific [place] > 1.030 H (1.010-1.025) Urine Protein Trace (Neg-Trace) mg/dL Urine Glucose (UA) Normal (Normal) mg/dL Urine Ketones Negative (Negative) mg/dL Urine Blood Negative (Negative) Urine Nitrite Negative (Negative) Urine Bilirubin Negative (Negative) Urine Urobilinogen Normal (Normal) mg/dL Ur Leukocyte Esterase Negative (Negative) Salicylates (15.0-30.0) mg/dL Urine Opiates Screen Negative (Ejgqtg=026) ng/mL Ur Buprenorphine Scrn Negative (Cutoff=5) ng/mL Acetaminophen (10-20) mcg/mL Ur Barbiturates Screen Negative (Xfimzg=955) ng/mL Ur Phencyclidine Scrn Negative (Cutoff=25) ng/mL Ur Amphetamines Screen Positive H (Zpazom=6593) ng/mL U Benzodiazepines Scrn Negative (Bggnfo=396) ng/mL Urine Cocaine Screen Negative (Cutoff= 300) ng/mL U Marijuana (THC) Screen Negative (Cutoff = 50) ng/mL Ur Drug Screen Interp See Below Ethyl Alcohol (Less than 10) mg/dL 03/05/19 Range/Units 03:39 WBC (4.3-11.1) K/mcL RBC (4.19-5.50) M/mcL Hgb (12.9-16.9) g/dL Hct (37.5-50.1) % MCV (83.0-100.0) fL MCH (28.0-33.3) pg MCHC (31.6-35.5) g/dL RDW (11.5-14.5) % Plt Count (140-400) K/mcL MPV (9.4-12.4) fL Immature Gran % (0-4) % Seg Neutrophils % % Lymphocytes % % Monocytes % % Eosinophils % % Basophils % % Neutrophils # (1.6-8.9) K/mcL Lymphocytes # (0.6-4.6) K/mcL Monocytes # (0.0-1.3) K/mcL Eosinophils # (0.0-0.6) K/mcL Basophils # (0.0-0.2) K/mcL Sodium 139 (136-145) mEq/L Potassium 3.4 L (3.5-5.1) mEq/L Chloride 107 (98-107) mEq/L Carbon Dioxide 24 (23-29) mEq/L BUN 13 (6-20) mg/dL Creatinine 0.95 (0.70-1.30) mg/dL Est GFR ( Amer) > 60 (> 60) Est GFR (Non-Af Amer) > 60 (> 60) BUN/Creatinine Ratio 14 (6-26) Glucose 115 H (70-105) mg/dL Calculated Osmolality 289 (280-300) Calcium 9.5 (8.6-10.3) mg/dL Urine Color (Yellow) Urine Clarity (Clear) Urine pH (5.0-8.0) pH Units Ur Specific [place] (1.010-1.025) Urine Protein (Neg-Trace) mg/dL Urine Glucose (UA) (Normal) mg/dL Urine Ketones (Negative) mg/dL Urine Blood (Negative) Urine Nitrite (Negative) Urine Bilirubin (Negative) Urine Urobilinogen (Normal) mg/dL Ur Leukocyte Esterase (Negative) Salicylates < 2.5 L (15.0-30.0) mg/dL Urine Opiates Screen (Ugdpwe=923) ng/mL Ur Buprenorphine Scrn (Cutoff=5) ng/mL Acetaminophen < 10 L (10-20) mcg/mL Ur Barbiturates Screen (Xlpvit=684) ng/mL Ur Phencyclidine Scrn (Cutoff=25) ng/mL Ur Amphetamines Screen (Iszurq=4089) ng/mL U Benzodiazepines Scrn (Waftbw=565) ng/mL Urine Cocaine Screen (Cutoff= 300) ng/mL U Marijuana (THC) Screen (Cutoff = 50) ng/mL Ur Drug Screen Interp Ethyl Alcohol < 10 (Less than 10) mg/dL Psychiatric Medical Clearance - Medical Clearance Checklist Medical History: No Social History Section defined Current Vitals: Last Vital Signs Temp 98.3 F 03/05/19 03:13 Pulse 118 03/05/19 03:13 Resp 16 03/05/19 03:13 BP 127/93 03/05/19 03:13 Pulse Ox 97 03/05/19 03:13 Psychiatric Lab Panel: Drug Levels and Toxicity 03/05/19 03/05/19 03:24 03:39 Urine Opiates Screen Negative Acetaminophen < 10 L Ur Barbiturates Screen Negative Ur Phencyclidine Scrn Negative Ur Amphetamines Screen Positive H U Benzodiazepines Scrn Negative Urine Cocaine Screen Negative U Marijuana (THC) Screen Negative Ethyl Alcohol < 10 Abnormal Labs: Abnormal lab results WBC 14.3 K/mcL (4.3-11.1) H 03/05/19 03:39 Neutrophils # 10.5 K/mcL (1.6-8.9) H 03/05/19 03:39 Potassium 3.4 mEq/L (3.5-5.1) L 03/05/19 03:39 Glucose 115 mg/dL (70-105) H 03/05/19 03:39 Ur Specific [place] > 1.030 (1.010-1.025) H 03/05/19 03:24 Salicylates < 2.5 mg/dL (15.0-30.0) L 03/05/19 03:39 Acetaminophen < 10 mcg/mL (10-20) L 03/05/19 03:39 Ur Amphetamines Screen Positive ng/mL (Tjvsng=6236) H 03/05/19 03:24 Statement of Medical Clearance: I have evaluated the patient, reviewed diagnostic information, and certify that the patient's medical condition is sufficiently stable that transfer to the psychiatric unit does not pose a significant risk of deterioration.
[2019-03-05] MEDS ORDERED: Mag Hydrox/Al Hydrox/Simeth 30 ML UDC PO PRN (06:11)
[2019-03-05] MEDS ORDERED: Ibuprofen 400 MG TABLET PO PRN (06:11)
[2019-03-05] MEDS ORDERED: traZODone 50 MG TABLET PO PRN (06:11)
[2019-03-05] MEDS ORDERED: *HR* LORazepam 1 MG TABLET PO PRN (06:11)
[2019-03-05] MEDS ORDERED: MOM Conc 10 ML UD.LIQ PO PRN (06:11)
[2019-03-05] MEDS ORDERED: *HR* LORazepam 2 MG/ML VIAL IM PRN (06:11)
[2019-03-05] MEDS ORDERED: Haloperidol Lactate 5 MG/ML VIAL IM PRN (06:11)
[2019-03-05] MEDS ORDERED: hydrOXYzine pamoate 25 MG CAPSULE PO PRN (06:11)
[2019-03-05] MEDS ORDERED: Nicotine 21 MG PATCH.TD24 TD SCH (09:00)
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
[2019-03-05] MEDS: Venlafaxine XR (24 HR) 37.5 MG CAP.ER.24H PO SCH (12:40)
[2019-03-05] MEDS: Nicotine 2 MG GUM BC PRN ×3 (12:42→20:55)
[2019-03-06] MEDS: Venlafaxine XR (24 HR) 37.5 MG CAP.ER.24H PO SCH (08:49)
[2019-03-06] MEDS: Nicotine 2 MG GUM BC PRN ×4 (08:50→20:43)
--- NOTE | 2019-03-06 09:55 | Psychiatry Progress Note ---
Date of Encounter: 03/06/19 Time of Encounter: 09:50 Subjective Interval history: Client was denying everything to staff but told this flex o writer operator today he still "feels like I shouldn't be here." Continues to have SI with no specific plan or intent. Told staff he wants to move to [place] to be with his "baby mama" but did not mention anything of the sort to this flex o writer operator. Not expressing any real future orientation. No real coping skills. However, he is sleeping and eating well. Attempting to interact with staff and peers although he reports a long history of social anxiety. Restarted Effexor and Invega. Complaining of a dry mouth but otherwise tolerating them. May need a couple of days to give meds time to work. Client is chronically noncompliant when it comes to continuing treatment in the community and will need ongoing education about the importance of staying in treatment and following up with a prescriber and therapist. Review of Systems Constitutional: Denies: fever, chills, weakness, weight change Eyes: Denies: eye pain, vision change Ears, Nose, Throat: Denies: ear pain, throat pain, dental pain, hearing loss, congestion Cardiovascular: Denies: chest pain, palpitations, dyspnea on exertion Respiratory: Denies: cough, dyspnea, wheezes Gastrointestinal: Denies: abdominal pain, nausea, vomiting, diarrhea, constipation Musculoskeletal: Denies: joint swelling, joint pain Neurological: Denies: headache, weakness, numbness, memory loss Results - Vital Signs Vital Signs: Temp Pulse Resp BP Pulse Ox 97.9 F 100 18 129/81 97 03/05/19 19:51 03/05/19 19:51 03/05/19 19:51 03/05/19 19:51 03/05/19 19:51 Assessment and Plan (1) Major depress dis, severe Current visit: Yes Status: Acute Plan: Continue hospitalization, Close observation, Suicide Precautions per unit protocol, Encourage participation in unit milieu, Group Therapy, Monitor sleep, Monitor appetite Risks, benefits, side effects, alternatives discussed w/pt: Yes Patient agreeable to treatment: Yes (2) Patient's noncompliance with other medical treatment and regimen Current visit: No Status: Chronic Plan: Continue hospitalization, Close observation, Suicide Precautions per unit protocol, Encourage participation in unit milieu, Group Therapy, Monitor sleep, Monitor appetite Risks, benefits, side effects, alternatives discussed w/pt: Yes Patient agreeable to treatment: Yes (3) Methamphetamine abuse Current visit: Yes Status: Acute Plan: Continue hospitalization, Close observation, Suicide Precautions per unit protocol, Encourage participation in unit milieu, Group Therapy, Monitor sleep, Monitor appetite Risks, benefits, side effects, alternatives discussed w/pt: Yes Patient agreeable to treatment: Yes Consult Discharge Plan - Plan Referrals: NONE,PCP [Primary Care Provider] - Psychiatry Exam - Constitutional Vitals: Temp Pulse Resp BP Pulse Ox 97.9 F 100 18 129/81 97 03/05/19 19:51 03/05/19 19:51 03/05/19 19:51 03/05/19 19:51 03/05/19 19:51 General appearance: disheveled - Musculoskeletal Gait: normal Station: relaxed Strength & Tone: normal for patient - Psychiatric Patient Orientation: Yes Person, Yes Time, Yes Place Level of alertness: Alert Behavior: calm, cooperative Psychomotor activity: Normal Eye Contact: Maintains Eye Contact Mood Description: Depressed, Anxious Affect description: congruent with mood Speech Volume: Normal Speech pattern: normal rate, normal rhythm, normal tone, fluent, spontaneous Language & Vocabulary: consistent with education Thought Process: Linear Thought Content: Yes Suicidal ideation, No Homicidal ideation, No Overt delusions Perceptual Disturbances: No Auditory hallucinations, No Visual hallucinations Attention Span Ability: Capable of Focused Attention Memory Description: Grossly Intact Patient Reliability: Reliable Historian Fund of knowledge: Yes abstraction ability, Yes aware of current events Intelligence Estimate: Below Average Judgment: Limited Insight: Minimal
[2019-03-07] MEDS: Nicotine 2 MG GUM BC PRN ×5 (07:23→21:30)
[2019-03-07] MEDS: Venlafaxine XR (24 HR) 37.5 MG CAP.ER.24H PO SCH (08:46)
--- NOTE | 2019-03-07 09:52 | Psychiatry Progress Note ---
Date of Encounter: 03/07/19 Time of Encounter: 08:50 Subjective Interval history: Patient continues to report some depression with sad mood and thoughts of hurting himself. He said today he does not have a specific plan. He is tolerating the Effexor and in [place]. He is hot on the unit and while he is often out he is still withdrawn and keeps to himself. He at times appears to responding to internal stimuli. Review of Systems Psychiatric: Reports: depression, abnormal sleep pattern, suicidal ideation, auditory hallucinations Results - Vital Signs Vital Signs: Temp Pulse Resp BP Pulse Ox 97.1 F L 118 20 138/92 97 03/06/19 21:00 03/06/19 21:00 03/06/19 21:00 03/06/19 21:00 03/06/19 21:00 Assessment and Plan (1) Other stimulant abuse with stimulant-induced mood disorder Current visit: No Status: Acute Plan: Continue hospitalization, Close observation, Suicide Precautions per unit protocol, Encourage participation in unit milieu, Group Therapy, Monitor sleep, Monitor appetite Additional Plan: Consider further increase of Effexor and in [place] tomorrow. Continue to encourage group attendance. Therapists working on linkage. Risks, benefits, side effects, alternatives discussed w/pt: Yes Patient agreeable to treatment: Yes Consult Discharge Plan - Plan Referrals: NONE,PCP [Primary Care Provider] - Psychiatry Exam - Constitutional Vitals: Temp Pulse Resp BP Pulse Ox 97.1 F L 118 20 138/92 97 03/06/19 21:00 03/06/19 21:00 03/06/19 21:00 03/06/19 21:00 03/06/19 21:00 General appearance: age & developmentally appropriate, disheveled - Musculoskeletal Gait: slow Station: stooped Strength & Tone: mild weakness - Psychiatric Patient Orientation: Yes Person, Yes Time, Yes Place Level of alertness: Alert Behavior: nervous, withdrawn Psychomotor activity: Slowed Eye Contact: Minimal Contact Mood Description: Depressed Patient description of mood: "I do not know" Affect description: flat Speech Volume: Soft/Quiet Speech pattern: slowed Language & Vocabulary: consistent with education Thought Process: [place], Slowed Thinking Thought Content: Yes Suicidal ideation, No Homicidal ideation Perceptual Disturbances: Yes Auditory hallucinations Attention Span Ability: Unable to Focus, Unable to Sustain Attention Memory Description: Grossly Intact Patient Reliability: Questionable Historian Fund of knowledge: Yes average Intelligence Estimate: Average Judgment: Limited Insight: Minimal
[2019-03-08] MEDS: Nicotine 2 MG GUM BC PRN (09:29)
[2019-03-08] MEDS: Venlafaxine XR (24 HR) 37.5 MG CAP.ER.24H PO SCH (09:29)
--- NOTE | 2019-03-08 09:31 | Discharge Summary ---
Date of Encounter: 03/08/19 Time of Encounter: 07:40 Diagnosis - Discharge Diagnosis (1) Other stimulant abuse with stimulant-induced mood disorder Status: Acute Medications - Discharge Medications Prescriptions: Venlafaxine XR (24 HR) [Effexor Xr] 37.5 mg PO DAILY #15 cap.er.24h Paliperidone [Invega] 3 mg PO DAILY #15 tab.er.24 traZODone [TraZODone] 50 mg PO HS PRN #15 tablet PRN Reason: Insomnia hydrOXYzine pamoate [Vistaril] 25 mg PO TID PRN #30 capsule PRN Reason: Anxiety Paliperidone [Invega] 3 mg PO DAILY #15 tab.er.24 03/08/19 [Rx] Venlafaxine XR (24 HR) [Effexor Xr] 37.5 mg PO DAILY #15 cap.er.24h 03/08/19 [Rx] hydrOXYzine pamoate [Vistaril] 25 mg PO TID PRN #30 capsule 03/08/19 [Rx] traZODone [TraZODone] 50 mg PO HS PRN #15 tablet 03/08/19 [Rx] Allergy/AdvReac Type Severity Reaction Status Date / Time No Known Allergies Allergy Verified 03/05/19 03:12 Results Procedures and tests throughout hospitalization: Completed Lab Orders Category Date Time Status Acetaminophen Stat Lab 03/05/19 03:39 Completed Basic Metabolic Panel Stat Lab 03/05/19 03:39 Completed Complete Blood Count [HEME] Stat Lab 03/05/19 03:39 Completed Drug Screen, Urine [UCHEM] Stat Lab 03/05/19 03:24 Completed Ethanol Stat Lab 03/05/19 03:39 Completed Salicylate Stat Lab 03/05/19 03:39 Completed Urinalysis reflex Microscopic [URIN] Stat Lab 03/05/19 03:24 Completed Lab Results 03/05/19 03/05/19 03/05/19 Range/Units 03:24 03:24 03:39 WBC 14.3 H (4.3-11.1) K/mcL RBC 4.96 (4.19-5.50) M/mcL Hgb 14.5 (12.9-16.9) g/dL Hct 42.5 (37.5-50.1) % MCV 85.7 (83.0-100.0) fL MCH 29.2 (28.0-33.3) pg MCHC 34.1 (31.6-35.5) g/dL RDW 12.5 (11.5-14.5) % Plt Count 253 (140-400) K/mcL MPV 10.3 (9.4-12.4) fL Immature Gran % 0.4 (0-4) % Seg Neutrophils % 73.4 % Lymphocytes % 15.1 % Monocytes % 8.6 % Eosinophils % 1.7 % Basophils % 0.8 % Neutrophils # 10.5 H (1.6-8.9) K/mcL Lymphocytes # 2.2 (0.6-4.6) K/mcL Monocytes # 1.2 (0.0-1.3) K/mcL Eosinophils # 0.3 (0.0-0.6) K/mcL Basophils # 0.1 (0.0-0.2) K/mcL Sodium (136-145) mEq/L Potassium (3.5-5.1) mEq/L Chloride (98-107) mEq/L Carbon Dioxide (23-29) mEq/L BUN (6-20) mg/dL Creatinine (0.70-1.30) mg/dL Est GFR ( Amer) (> 60) Est GFR (Non-Af Amer) (> 60) BUN/Creatinine Ratio (6-26) Glucose (70-105) mg/dL Calculated Osmolality (280-300) Calcium (8.6-10.3) mg/dL Urine Color Yellow (Yellow) Urine Clarity Clear (Clear) Urine pH 5.0 (5.0-8.0) pH Units Ur Specific [place] > 1.030 H (1.010-1.025) Urine Protein Trace (Neg-Trace) mg/dL Urine Glucose (UA) Normal (Normal) mg/dL Urine Ketones Negative (Negative) mg/dL Urine Blood Negative (Negative) Urine Nitrite Negative (Negative) Urine Bilirubin Negative (Negative) Urine Urobilinogen Normal (Normal) mg/dL Ur Leukocyte Esterase Negative (Negative) Salicylates (15.0-30.0) mg/dL Urine Opiates Screen Negative (Sxfgxe=438) ng/mL Ur Buprenorphine Scrn Negative (Cutoff=5) ng/mL Acetaminophen (10-20) mcg/mL Ur Barbiturates Screen Negative (Rahcnz=433) ng/mL Ur Phencyclidine Scrn Negative (Cutoff=25) ng/mL Ur Amphetamines Screen Positive H (Azbvdn=4471) ng/mL U Benzodiazepines Scrn Negative (Aaqcln=905) ng/mL Urine Cocaine Screen Negative (Cutoff= 300) ng/mL U Marijuana (THC) Screen Negative (Cutoff = 50) ng/mL Ur Drug Screen Interp See Below Ethyl Alcohol (Less than 10) mg/dL 03/05/19 Range/Units 03:39 WBC (4.3-11.1) K/mcL RBC (4.19-5.50) M/mcL Hgb (12.9-16.9) g/dL Hct (37.5-50.1) % MCV (83.0-100.0) fL MCH (28.0-33.3) pg MCHC (31.6-35.5) g/dL RDW (11.5-14.5) % Plt Count (140-400) K/mcL MPV (9.4-12.4) fL Immature Gran % (0-4) % Seg Neutrophils % % Lymphocytes % % Monocytes % % Eosinophils % % Basophils % % Neutrophils # (1.6-8.9) K/mcL Lymphocytes # (0.6-4.6) K/mcL Monocytes # (0.0-1.3) K/mcL Eosinophils # (0.0-0.6) K/mcL Basophils # (0.0-0.2) K/mcL Sodium 139 (136-145) mEq/L Potassium 3.4 L (3.5-5.1) mEq/L Chloride 107 (98-107) mEq/L Carbon Dioxide 24 (23-29) mEq/L BUN 13 (6-20) mg/dL Creatinine 0.95 (0.70-1.30) mg/dL Est GFR ( Amer) > 60 (> 60) Est GFR (Non-Af Amer) > 60 (> 60) BUN/Creatinine Ratio 14 (6-26) Glucose 115 H (70-105) mg/dL Calculated Osmolality 289 (280-300) Calcium 9.5 (8.6-10.3) mg/dL Urine Color (Yellow) Urine Clarity (Clear) Urine pH (5.0-8.0) pH Units Ur Specific [place] (1.010-1.025) Urine Protein (Neg-Trace) mg/dL Urine Glucose (UA) (Normal) mg/dL Urine Ketones (Negative) mg/dL Urine Blood (Negative) Urine Nitrite (Negative) Urine Bilirubin (Negative) Urine Urobilinogen (Normal) mg/dL Ur Leukocyte Esterase (Negative) Salicylates < 2.5 L (15.0-30.0) mg/dL Urine Opiates Screen (Wdwdbp=783) ng/mL Ur Buprenorphine Scrn (Cutoff=5) ng/mL Acetaminophen < 10 L (10-20) mcg/mL Ur Barbiturates Screen (Piqinz=711) ng/mL Ur Phencyclidine Scrn (Cutoff=25) ng/mL Ur Amphetamines Screen (Ayapyz=6189) ng/mL U Benzodiazepines Scrn (Xdbdui=090) ng/mL Urine Cocaine Screen (Cutoff= 300) ng/mL U Marijuana (THC) Screen (Cutoff = 50) ng/mL Ur Drug Screen Interp Ethyl Alcohol < 10 (Less than 10) mg/dL Provider Date of admission: 03/05/19 06:10 Primary care physician: PCP NONE Discharging clinician: Elizabeth Garrido Psychiatry Exam - Constitutional Vitals: Temp Pulse Resp BP Pulse Ox 98.2 F 111 18 131/72 97 03/07/19 20:21 03/07/19 20:21 03/07/19 20:21 03/07/19 20:21 03/07/19 20:21 General appearance: age & developmentally appropriate, well-nourished, disheveled - Musculoskeletal Gait: normal Station: relaxed Strength & Tone: normal for patient - Psychiatric Patient Orientation: Yes Person, Yes Time, Yes Place, Yes Circumstance Level of alertness: Alert Behavior: calm, cooperative Psychomotor activity: Normal Eye Contact: Maintains Eye Contact Mood Description: Euthymic/stable Patient description of mood: Good Affect description: congruent with mood, constricted Speech Volume: Normal Speech pattern: normal rate, normal rhythm, normal tone, fluent, spontaneous Language & Vocabulary: consistent with education Thought Process: Linear, Goal Oriented Thought Content: No Suicidal ideation, No Homicidal ideation, No Overt delusions Perceptual Disturbances: No Auditory hallucinations, No Visual hallucinations Attention Span Ability: Capable of Focused Attention Memory Description: Grossly Intact Patient Reliability: Reliable Historian Fund of knowledge: Yes abstraction ability, Yes below average, Yes aware of current events Intelligence Estimate: Below Average Judgment: Limited Insight: Partial Hospital Course Hospital course: Mr. Tavares is a 33 year old male who was admitted for suicidal ideations. He has had multiple prior psychiatric admissions. He is chronically noncompliant with outpatient care. He had been sober for 5 months but recently relapsed on methamphetamines. He is socially anxious. He seems lower functioning. He was restarted on his Effexor and then they will which she had taken before. We discussed Invega Sustenna long-acting injectable to improve compliance but he declined and had capacity to make this decision.Patient was educated of diagnosis and the risk-benefit side effects of this alternative treatment options and was monitored for responsiveness and side effects. Mood anxiety sleep and appetite interest improved as did future orientation. Self-harm thoughts subsided, thinking cleared, psychosis resolved, and mood stabilized. Patient was able to attend both individual and group therapy sessions as well as meet with the psychiatrist daily and urged to discuss any medication or treatment issues or other concerns. The patient was educated primarily by verbal means about their diagnosis and manifestations in their life. The option for treatment including group and individual therapy programming was offered to the patient in addition to the use of medications with all their potential risks, benefits, and side effects as well as the risks of not taking medication and non-adhereance were discussed with the patient at length. The patient was given the opportunity to ask questions and was noted to participate in the treatment in the planning process. The patient felt ready and eager to be discharged from the inpatient psychiatric unit to continue on with treatment as an outpatient. The patient agreed that is they were safe for this disposition. The patient was considered to be able to participate in informed consent and decision making with respect to medical, legal, and financial issues of the time of discharge. At the time of discharge the patient adamantly denied any con cerns for lethality including suicidal or homicidal thoughts ideations or plans and was future oriented toward ongoing mental health care, medical follow-up and sobriety. Time spent discussing smoking cessation with patient: 3 to 10 minutes Does patient wish to continue nicotine replacement upon disc: No - Time Spent with Patient Total time spent providing and/or coordinating discharge services: 20 Less than 30 minutes Specific discharge activities: Interval history reviewed. Available labs r eviewed . Psychotherapy provided. Patient had an opportunity to ask questions and address concerns. Patient was in agreement with the treatment plan. The risks benefits and side effects of medications were discussed with the patient, including alternatives and treatment. The patient was educated on the abstaining from any alcohol or illicit substances, following up with all scheduled appointments, and taking all medications as prescribed. The patient was educated on 90 meetings in 90 days and to find a sponsor. Assessment and Plan - Patient/Caregiver Discharge Instructions Activity: resume usual activities as tolerated Diet: regular diet Additional Instructions: Continue current medications. Follow up with outpatient mental health. Encourage continued therapy in a group or individual setting. The patient was discharged to home. - Follow up Plan Follow up with: Scar Dawkins [facility] [Outside] - 03/17/19 1:00 pm (You have an appointment scheduled with Ameena Rasmussen on , March 17, 2019 at 1:00 PM for Counseling and Case Management. Please contact the office at least 24 hours in advance if you are unable to keep your appointment(s). ) Functional capacity at discharge: independent ambulation Overall status at discharge: Stable Disposition: Home, Self-Care Quality - Multiple Antipsychotics Patient discharged on 2 or more antipsychotic medications: No Procedures - Procedures Procedures: Medication Management, Crisis Stabilization, Supportive Therapy, Group Therapy, Psychoeducational Therapy
[2019-03-08 10:10] VITALS: BP 133/87
== END 2019-03-08 11:15 | disposition home or self-care (01) | DRG 776 ==
LOC: EMEROOARM 03:09 → SUATTDRO 06:10 → 1ANU 06:10
PROVIDERS: ADMIT Psychiatry & Neurology Psychiatry; ATTEND Psychiatry & Neurology Psychiatry

== ENCOUNTER 2019-05-07 12:28 | Inpatient (IN) ==
[2019-05-07 12:47] LABS: Bilirubin,Urine Negative (Negative); Blood,Urine Negative (Negative); Clarity,Urine Clear (Clear); Color,Urine Yellow (Yellow); Glucose,Urine (UA) Normal (Normal); Ketones,Urine Negative (Negative); Leukocyte Esterase,Urine Negative (Negative); Nitrite,Urine Negative (Negative); Protein,Urine Negative (Neg-Trace); Specific Gravity,Urine 1.027 (1.010-1.025); Urobilinogen,Urine Normal (Normal)
[2019-05-07 13:00] LABS: Basophils # 0.1 K/mcL (0.0-0.2); Basophils % 1.3 %; Eosinophils # 0.4 K/mcL (0.0-0.6); Eosinophils % 5.4 %; Hematocrit 41.9 % (37.5-50.1); Immature Granulocytes % 0.3 % (0-4); Lymphocytes % 29.7 %; Mean Corpuscular HGB Conc 35.8 g/dL (31.6-35.5); Mean Corpuscular Hemoglobin 29.5 pg (28.0-33.3); Mean Corpuscular Volume 82.5 fL (83.0-100.0); Mean Platelet Volume 9.9 fL (9.4-12.4); Monocytes # 0.5 K/mcL (0.0-1.3); Monocytes % 7.5 %; Neutrophils # 3.7 K/mcL (1.6-8.9); Platelet Count 238 K/mcL (140-400); Red Blood Count 5.08 M/mcL (4.19-5.50); Red Cell Distribution Width 12.5 % (11.5-14.5); Segmented Neutrophils % 55.8 %; White Blood Count 6.7 K/mcL (4.3-11.1)
[2019-05-07 13:27] LABS: Amphetamine Screen,Urine Positive ng/mL (Cutoff=1000); Barbiturate Screen,Urine Negative ng/mL (Cutoff=200); Benzodiazepines Screen,Urine Negative ng/mL (Cutoff=200); Cannabinoid Screen,Urine Negative ng/mL (Cutoff = 50); Cocaine Screen,Urine Negative ng/mL (Cutoff= 300); Opiate Screen,Urine Negative ng/mL (Cutoff=300); Phencyclidine Screen,Urine Negative ng/mL (Cutoff=25)
[2019-05-07 13:29] LABS: Acetaminophen < 10 mcg/mL (10-20); BUN/Creatinine Ratio 14 (6-26); Blood Urea Nitrogen 15 mg/dL (6-20); Calcium 9.2 mg/dL (8.6-10.3); Carbon Dioxide 24 mEq/L (23-29); Chloride 104 mEq/L (98-107); Ethanol < 10 mg/dL (Less than 10); Glucose 94 mg/dL (70-105); Osmolality,Calculated 283 (280-300); Potassium 3.7 mEq/L (3.5-5.1); Salicylate < 2.5 mg/dL (15.0-30.0); Sodium 136 mEq/L (136-145); eGFR For African Americans > 60 (> 60); eGFR For Non-African Americans > 60 (> 60)
[2019-05-07] MEDS ORDERED: *HR* LORazepam 1 MG TABLET PO PRN (16:17)
[2019-05-07] MEDS ORDERED: MOM Conc 10 ML UD.LIQ PO PRN (16:17)
[2019-05-07] MEDS ORDERED: Mag Hydrox/Al Hydrox/Simeth 30 ML UDC PO PRN (16:17)
[2019-05-07] MEDS ORDERED: Haloperidol Lactate 5 MG/ML VIAL IM PRN (16:17)
[2019-05-07] MEDS ORDERED: Acetaminophen 325 MG TABLET PO PRN (16:17)
[2019-05-07] MEDS ORDERED: *HR* LORazepam 2 MG/ML VIAL IM PRN (16:17)
[2019-05-07] MEDS ORDERED: traZODone 50 MG TABLET PO PRN (16:17)
[2019-05-07] MEDS ORDERED: Ondansetron ODT 4 MG TAB.RAPDIS SL PRN (16:28)
[2019-05-07] MEDS: Nicotine 2 MG GUM BC PRN (19:59)
[2019-05-07] MEDS: hydrOXYzine pamoate 25 MG CAPSULE PO PRN (21:16)
[2019-05-08] MEDS: Nicotine 2 MG GUM BC PRN ×4 (08:34→20:12)
[2019-05-08] MEDS: cloNIDine HCl 0.1 MG TABLET PO PRN ×2 (08:53→18:23)
[2019-05-08] MEDS: hydrOXYzine pamoate 25 MG CAPSULE PO PRN (18:23)
[2019-05-09] MEDS: Nicotine 2 MG GUM BC PRN (08:15)
[2019-05-09 08:17] LABS: Chol/HDL Ratio 7.8 (0-4.9)
[2019-05-09 08:22] LABS: Estimated Average Glucose 126 mg/dl
[2019-05-09 09:26] VITALS: BP 111/68
[2019-05-10] MEDS ORDERED: BuPROPion SR (12 HR) 150 MG TABLET PO SCH (09:00)
== END 2019-05-09 12:18 | disposition home or self-care (01) | DRG 753 ==
LOC: EMEROOARM 12:28 → SUATTDRO 16:13 → 1ANU 16:13
PROVIDERS: ADMIT Psychiatry & Neurology Psychiatry; ATTEND Psychiatry & Neurology Psychiatry

== ENCOUNTER 2019-06-15 17:15 | Inpatient (IN) ==
[2019-06-15 18:11] LABS: Bilirubin,Urine Negative (Negative); Blood,Urine Negative (Negative); Clarity,Urine Cloudy (Clear); Color,Urine Yellow (Yellow); Glucose,Urine (UA) Normal (Normal); Ketones,Urine Negative (Negative); Leukocyte Esterase,Urine Negative (Negative); Nitrite,Urine Negative (Negative); Protein,Urine Negative (Neg-Trace); Specific Gravity,Urine 1.015 (1.010-1.025); Urobilinogen,Urine Normal (Normal)
[2019-06-15 18:13] LABS: Bacteria,Urine None Seen per hpf (None-Few); Hyaline Casts,Urine None Seen per lpf (None-Few); RBC,Urine 0-3 per hpf (0-3); Squamous Epithelial Cell,Urine None Seen per lpf (None-Few); WBC,Urine 0-3 per hpf (0-3)
[2019-06-15 18:25] LABS: Basophils # 0.2 K/mcL (0.0-0.2); Basophils % 1.3 %; Eosinophils # 0.6 K/mcL (0.0-0.6); Eosinophils % 4.7 %; Hematocrit 45.3 % (37.5-50.1); Hemoglobin 15.9 g/dL (12.9-16.9); Immature Granulocytes % 0.6 % (0-4); Lymphocytes # 3.1 K/mcL (0.6-4.6); Lymphocytes % 26.2 %; Mean Corpuscular HGB Conc 35.1 g/dL (31.6-35.5); Mean Corpuscular Hemoglobin 28.8 pg (28.0-33.3); Mean Corpuscular Volume 82.1 fL (83.0-100.0); Mean Platelet Volume 10.3 fL (9.4-12.4); Monocytes # 0.7 K/mcL (0.0-1.3); Monocytes % 6.2 %; Neutrophils # 7.1 K/mcL (1.6-8.9); Platelet Count 154 K/mcL (140-400); Red Blood Count 5.52 M/mcL (4.19-5.50); Red Cell Distribution Width 12.1 % (11.5-14.5); White Blood Count 11.7 K/mcL (4.3-11.1)
[2019-06-15 18:33] LABS: Amphetamine Screen,Urine Positive ng/mL (Cutoff=1000); Barbiturate Screen,Urine Negative ng/mL (Cutoff=200); Benzodiazepines Screen,Urine Negative ng/mL (Cutoff=200); Cannabinoid Screen,Urine Negative ng/mL (Cutoff = 50); Cocaine Screen,Urine Negative ng/mL (Cutoff= 300); Opiate Screen,Urine Negative ng/mL (Cutoff=300); Phencyclidine Screen,Urine Negative ng/mL (Cutoff=25)
[2019-06-15 18:37] LABS: Acetaminophen < 10 mcg/mL (10-20); BUN/Creatinine Ratio 11 (6-26); Blood Urea Nitrogen 11 mg/dL (6-20); Calcium 9.8 mg/dL (8.6-10.3); Carbon Dioxide 24 mEq/L (23-29); Chloride 106 mEq/L (98-107); Ethanol < 10 mg/dL (Less than 10); Glucose 92 mg/dL (70-105); Osmolality,Calculated 283 (280-300); Potassium 3.5 mEq/L (3.5-5.1); Salicylate < 2.5 mg/dL (15.0-30.0); Sodium 137 mEq/L (136-145); eGFR For African Americans > 60 (> 60); eGFR For Non-African Americans > 60 (> 60)
[2019-06-15] MEDS ORDERED: *HR* LORazepam 2 MG/ML VIAL IM PRN (22:10)
[2019-06-15] MEDS ORDERED: Haloperidol Lactate 5 MG/ML VIAL IM PRN (22:10)
[2019-06-15] MEDS ORDERED: MOM Conc 10 ML UD.LIQ PO PRN (22:10)
[2019-06-15] MEDS ORDERED: Mag Hydrox/Al Hydrox/Simeth 30 ML UDC PO PRN (22:10)
[2019-06-15] MEDS: Ibuprofen 400 MG TABLET PO PRN (22:37)
[2019-06-15] MEDS: hydrOXYzine pamoate 25 MG CAPSULE PO PRN (22:37)
[2019-06-16] MEDS: Nicotine 2 MG GUM BC PRN ×4 (08:24→18:01)
[2019-06-16] MEDS: hydrOXYzine pamoate 25 MG CAPSULE PO PRN ×2 (09:21→20:12)
[2019-06-16] MEDS: BuPROPion XL (24 HR) 150 MG TABLET PO SCH (12:01)
[2019-06-16] MEDS: *HR* LORazepam 1 MG TABLET PO PRN (16:20)
[2019-06-16] MEDS: Ibuprofen 400 MG TABLET PO PRN (20:12)
[2019-06-16] MEDS: traZODone 50 MG TABLET PO PRN (20:12)
[2019-06-17] MEDS: BuPROPion XL (24 HR) 150 MG TABLET PO SCH (08:03)
[2019-06-17] MEDS: Nicotine 2 MG GUM BC PRN ×4 (08:25→20:35)
[2019-06-17] MEDS: hydrOXYzine pamoate 25 MG CAPSULE PO PRN ×2 (11:38→20:35)
[2019-06-17] MEDS: *HR* LORazepam 1 MG TABLET PO PRN (15:22)
[2019-06-17] MEDS: traZODone 50 MG TABLET PO PRN (20:35)
[2019-06-18] MEDS: Nicotine 2 MG GUM BC PRN ×3 (07:54→16:56)
[2019-06-18] MEDS: BuPROPion XL (24 HR) 150 MG TABLET PO SCH (08:27)
[2019-06-18] MEDS ORDERED: cloNIDine HCl 0.1 MG TABLET PO ONE (09:13)
[2019-06-18] MEDS ORDERED: cloNIDine HCl 0.1 MG TABLET PO PRN (09:13)
[2019-06-18] MEDS ORDERED: Baclofen 10 MG TABLET PO PRN (09:18)
[2019-06-18] MEDS ORDERED: hydrOXYzine pamoate 25 MG CAPSULE PO SCH (14:00)
[2019-06-18] MEDS: hydrOXYzine pamoate 25 MG CAPSULE PO PRN (20:52)
[2019-06-18] MEDS: traZODone 50 MG TABLET PO PRN (20:52)
[2019-06-19] MEDS: Nicotine 2 MG GUM BC PRN (08:24)
[2019-06-19] MEDS: BuPROPion XL (24 HR) 150 MG TABLET PO SCH (08:24)
[2019-06-19 10:00] VITALS: BP 132/84
== END 2019-06-19 12:30 | disposition home or self-care (01) | DRG 750 ==
LOC: 1ANU 17:15 → EMEROOARM 17:15 → 1ANU 22:00
PROVIDERS: ADMIT Psychiatry & Neurology Psychiatry; ATTEND Psychiatry & Neurology Psychiatry

== ENCOUNTER 2019-06-21 14:29 | Inpatient (IN) ==
[2019-06-21 15:04] LABS: Bilirubin,Urine Negative (Negative); Blood,Urine Negative (Negative); Clarity,Urine Clear (Clear); Color,Urine Yellow (Yellow); Glucose,Urine (UA) Normal (Normal); Ketones,Urine Negative (Negative); Leukocyte Esterase,Urine Negative (Negative); Nitrite,Urine Negative (Negative); Protein,Urine Negative (Neg-Trace); Specific Gravity,Urine 1.016 (1.010-1.025); Urobilinogen,Urine Normal (Normal)
[2019-06-21 15:10] LABS: Basophils # 0.2 K/mcL (0.0-0.2); Basophils % 1.3 %; Eosinophils # 0.7 K/mcL (0.0-0.6); Eosinophils % 5.8 %; Hematocrit 43.4 % (37.5-50.1); Hemoglobin 15.5 g/dL (12.9-16.9); Immature Granulocytes % 0.4 % (0-4); Lymphocytes # 2.9 K/mcL (0.6-4.6); Lymphocytes % 23.2 %; Mean Corpuscular HGB Conc 35.7 g/dL (31.6-35.5); Mean Corpuscular Hemoglobin 29.5 pg (28.0-33.3); Mean Corpuscular Volume 82.7 fL (83.0-100.0); Mean Platelet Volume 10.8 fL (9.4-12.4); Monocytes # 0.8 K/mcL (0.0-1.3); Monocytes % 6.8 %; Neutrophils # 7.7 K/mcL (1.6-8.9); Platelet Count 202 K/mcL (140-400); Red Blood Count 5.25 M/mcL (4.19-5.50); Red Cell Distribution Width 12.7 % (11.5-14.5); Segmented Neutrophils % 62.5 %; White Blood Count 12.3 K/mcL (4.3-11.1)
[2019-06-21 15:31] LABS: Acetaminophen < 10 mcg/mL (10-20); BUN/Creatinine Ratio 12 (6-26); Blood Urea Nitrogen 13 mg/dL (6-20); Calcium 9.8 mg/dL (8.6-10.3); Carbon Dioxide 23 mEq/L (23-29); Chloride 102 mEq/L (98-107); Chol/HDL Ratio 6.9 (0-4.9); Cholesterol 227 mg/dL (< 200); Ethanol < 10 mg/dL (Less than 10); Glucose 84 mg/dL (70-105); HDL Cholesterol 33 mg/dL (40-59); Osmolality,Calculated 281 (280-300); Potassium 3.9 mEq/L (3.5-5.1); Salicylate < 2.5 mg/dL (15.0-30.0); Sodium 136 mEq/L (136-145); Triglycerides 557 mg/dL (< 150); eGFR For African Americans > 60 (> 60); eGFR For Non-African Americans > 60 (> 60)
[2019-06-21 16:02] LABS: Estimated Average Glucose 114 mg/dl
[2019-06-21 16:02] LABS: Amphetamine Screen,Urine Negative ng/mL (Cutoff=1000); Barbiturate Screen,Urine Negative ng/mL (Cutoff=200); Benzodiazepines Screen,Urine Negative ng/mL (Cutoff=200); Cannabinoid Screen,Urine Negative ng/mL (Cutoff = 50); Cocaine Screen,Urine Negative ng/mL (Cutoff= 300); Opiate Screen,Urine Negative ng/mL (Cutoff=300); Phencyclidine Screen,Urine Negative ng/mL (Cutoff=25)
[2019-06-21] MEDS ORDERED: MOM Conc 10 ML UD.LIQ PO PRN (17:56)
[2019-06-21] MEDS ORDERED: hydrOXYzine pamoate 25 MG CAPSULE PO PRN (17:56)
[2019-06-21] MEDS ORDERED: Haloperidol Lactate 5 MG/ML VIAL IM PRN (17:56)
[2019-06-21] MEDS ORDERED: *HR* LORazepam 1 MG TABLET PO PRN (17:56)
[2019-06-21] MEDS ORDERED: Acetaminophen 325 MG TABLET PO PRN (17:56)
[2019-06-21] MEDS ORDERED: *HR* LORazepam 2 MG/ML VIAL IM PRN (17:56)
[2019-06-21] MEDS ORDERED: traZODone 50 MG TABLET PO PRN (17:56)
[2019-06-21] MEDS ORDERED: Mag Hydrox/Al Hydrox/Simeth 30 ML UDC PO PRN (17:56)
[2019-06-21] MEDS: Nicotine 2 MG GUM BC PRN (20:08)
[2019-06-22] MEDS: Nicotine 2 MG GUM BC PRN (08:14)
[2019-06-22] MEDS ORDERED: BuPROPion SR (12 HR) 150 MG TABLET PO SCH (09:00)
[2019-06-22 09:35] VITALS: BP 133/93
== END 2019-06-22 12:35 | disposition home or self-care (01) | DRG 817 ==
LOC: EMEROOARM 14:29 → 1ANU 17:36
PROVIDERS: ADMIT Psychiatry & Neurology Psychiatry; ATTEND Psychiatry & Neurology Psychiatry